=== PATIENT | female | born 1930 | race Caucasian/White ===

== ENCOUNTER → 2016-03-19 | Outpatient (CLI) | payer BC ==
[~2016-03-19] MED LIST: AMLO5TAB4 PO; ATV1 PO; BUPR100T8 PO; CALCTAB7 PO; CEPH500C PO; CNT PO; ESCI1TAB18 PO; GLC5 PO; IMD/2 PO; MCRK20 PO; METH500T3 PO; METO50TA7 PO; PRLSR20 PO
--- NOTE | 2016-03-19 15:48 | MAMMOGRAPHY REPORT ---
UNILATERAL RIGHT DIGITAL DIAGNOSTIC MAMMOGRAM TOMOSYNTHESIS AND TARGETED RIGHT ULTRASOUND: 03/19/2016 CLINICAL HISTORY: Callback from screening mammogram for right breast mass. TECHNIQUE: Breast tomosynthesis in addition to standard 2D mammography was performed. Spot domonique kavon right CC and MLO 2-D and tomosynthesis images were obtained. COMPARISON: Comparison is made to exams dated: 03/06/2016 mammogram, 02/22/2015 mammogram, 3 mammogram, 02/21/2014 mammogram, 11/13/2011 mammogram, and 10/02/2010 mammogram - [facility]. BREAST COMPOSITION: There are scattered areas of fibroglandular density in the right breast. FINDINGS: Spot compression views of the right breast demonstrate an oval circumscribed 7 mm mass se en within the right lower inner quadrant. Targeted ultrasound was performed of the area of the mammographic mass. In the right breast at 4:00 , 2 cm from the nipple, there is an oval circumscribed anechoic mass with two thin internal septatio ns, measuring 4 x 4 x 4 mm. This corresponds with the mammographic mass and is consistent with a be nign cyst. IMPRESSION: ACR BI-RADS CATEGORY 2: BENIGN, TARGETED ULTRASOUND ACR BI-RADS CATEGORY 2: BENIGN Benign 4 mm cyst in the right breast at 4:00 on ultrasound, which correlates with the mammographic m ass. There is no mammographic or targeted sonographic evidence of malignancy. A 1 year screening ma mmogram is recommended. The patient has been verbally notified of the results. Approximately 10% of breast cancers are not detected with mammography. A negative mammographic repor t should not delay biopsy if a clinically suggestive mass is present. Ramila Medrano M.D. /:03/19/2016 14:11:35 Prop And Scenery Maker: Justina AKINS([place])(M), [facility] letter sent: Normal 1/2 BI-RADS Code: ACR BI-RADS Category 2: Benign Ultrasound BI-RADS: ACR BI-RADS Category 2: Benign
== END | disposition home or self-care (01) ==
LOC: C.MAMM 13:43
PROVIDERS: ATTEND Internal Medicine
DX: N60.01 Solitary cyst of right breast (principal)

== ENCOUNTER → 2016-10-28 | Outpatient (CLI) | payer BC ==
[2016-10-28 17:19] LABS: BASO % 0.9 %; BASO ABS # 0.08 K/uL (0-0.2); COMPLETE YES; HEMATOCRIT 39.5 % (37-47); IG% 0.2 %; LYMPH % 29.8 %; LYMPH ABS # 2.52 K/uL (1.2-3.4); MEAN CORPUSCULAR HEMOGLOBIN 31.3 pg (25-34); MEAN CORPUSCULAR HGB CONC 32.9 g/dl (32-36); MEAN PLATELET VOLUME 11.7 fL (7.4-10.4); MONO % 5.9 %; NEUT % 61.2 %; PLATELET COUNT 202 K/uL (130-400); RED BLOOD COUNT 4.16 M/uL (4.2-5.4); WHITE BLOOD COUNT 8.47 K/uL (4.8-10.8)
[2016-10-28 17:20] LABS: ALT/SGPT 21 U/L (12-78); BLOOD UREA NITROGEN 22 mg/dl (7-18); CALCIUM 9.5 mg/dl (8.5-10.1); CARBON DIOXIDE 27 mmol/L (21-32); CHLORIDE 107 mmol/L (98-107); GLUCOSE 144 mg/dl (70-99); POTASSIUM 4.6 mmol/L (3.5-5.1); SODIUM 141 mmol/L (136-145)
[2016-10-28 17:30] LABS: ALB/GLOB RATIO 0.8 (0.9-2); ALKALINE PHOSPHATASE 89 U/L (45-117); AST/SGOT 27 U/L (15-37)
[2016-10-29 07:08] LABS: ESTIMATED AVERAGE GLUCOSE 157 mg/dl; HA1C FLAG Normal (Normal)
--- NOTE | 2016-11-06 15:19 | CODING QUERY MEDICAL NECESSITY ---
SUPPORTING DIAGNOSIS NEEDED A supporting diagnosis is required for the test/procedure performed on this patient in order for us to be reimbursed by the patient's insurance. Please provide a supporting diagnosis for the following test/procedure listed below next to the test name along with your signature. *If there is no additional diagnosis for this patient that would support the following test/procedure please document that below next to the test/procedure. Test(s)/Procedure(s) that require a supporting diagnosis: * HEMOGLOBIN A1C DIAGNOSIS: Provider Signature: Date: Thank you Martina Jesus [employer] Once completed, please kindly fax back to [phone] For questions please call [phone]
== END | disposition home or self-care (01) ==
LOC: C.LABBC 14:28
PROVIDERS: ATTEND Internal Medicine
DX: N18.3 Chronic kidney disease, stage 3 (moderate) (principal); E11.9 Type 2 diabetes mellitus without complications

== ENCOUNTER 2017-01-27 10:35 | Observation (INO) | payer BC, OTHER ==
[~2017-01-27] VITALS: Ht 167.6 cm; Wt 116.3 kg
[2017-01-27] MEDS ORDERED: SODIUM CHLORIDE 0.9% 500ML 500 ML IV STA (10:44)
[2017-01-27] MEDS ORDERED: ONDANSETRON INJ 2 MG/ML 2 ML VIAL IV STA (10:44)
[2017-01-27] MEDS ORDERED: MoRPHine SULFATE 4 MG/ML 1 ML CARP\\VIAL IV PRN (10:45)
[2017-01-27 11:19] LABS: BASO % 0.7 %; BASO ABS # 0.06 K/uL (0-0.2); COMPLETE YES; EOS % 1.6 %; HEMATOCRIT 37.9 % (37-47); IG% 0.2 %; LYMPH % 20.9 %; LYMPH ABS # 1.85 K/uL (1.2-3.4); MEAN CELL VOLUME 94.3 fL (80-100); MEAN CORPUSCULAR HEMOGLOBIN 31.6 pg (25-34); MEAN CORPUSCULAR HGB CONC 33.5 g/dl (32-36); NEUT % 70.6 %; PLATELET COUNT 177 K/uL (130-400); RED BLOOD COUNT 4.02 M/uL (4.2-5.4); WHITE BLOOD COUNT 8.84 K/uL (4.8-10.8)
[2017-01-27 11:21] LABS: MANUAL MICROSCOPIC REQUIRED? YES; REVIEW REQ? NO; URINE APPEARANCE SL CLOUDY (CLEAR); URINE BILIRUBIN NEG (NEG); URINE COLOR YELLOW; URINE NITRITE POS (NEG); URINE PH 5.5 (4.5-7.5); URINE SPECIFIC GRAVITY 1.025 (1.000-1.030); UROBILINOGEN NEG (NEG)
[2017-01-27 11:30] LABS: PROTHROMBIN TIME (PATIENT) 10.7 SECONDS (9.0-12.0)
[2017-01-27 11:31] LABS: URINE BACTERIA 3+ (NEG); URINE RBC 0-4 /hpf (0-4)
[2017-01-27 11:39] LABS: ALT/SGPT 18 U/L (12-78); BLOOD UREA NITROGEN 19 mg/dl (7-18); BUN/CREATININE RATIO 15.2 (10-20); CALCIUM 9.5 mg/dl (8.5-10.1); CARBON DIOXIDE 27 mmol/L (21-32); CHLORIDE 106 mmol/L (98-107); CREATININE 1.28 mg/dl (0.60-1.20); GLUCOSE 159 mg/dl (70-99); POTASSIUM 4.7 mmol/L (3.5-5.1); SODIUM 139 mmol/L (136-145)
[2017-01-27 11:44] LABS: ALKALINE PHOSPHATASE 83 U/L (45-117); AST/SGOT 19 U/L (15-37); CKMB/CK RATIO 1.1 (0-3.0)
--- NOTE | 2017-01-27 11:51 | EMERGENCY ROOM VISIT NOTE ---
History Report prepared by Emanuel: Chela Del Rosario Under the Supervision of: Dr. Jim Davison D.O. First contact with patient: 10:36 Stated Complaint: L-ANKLE PAIN History of Present Illness The patient is a 87 year old female who presents to the Emergency Room with complaints of constant left ankle pain secondary to a fall occurring DIRECTOR CARDIAC. Per EMS, the patient has fallen 3 times in the past 24 hours. She has refused transport to the ED each time. After her most recent fall, the patient had a deformity to the left ankle and was brought to the ED by ambulance for further evaluation. The patient is currently complaining of left ankle pain that is worsened with movement. She rates her pain as an 8/10 in severity. She denies any other pain or injury occurring from her falls. The patient denies neck pain , back pain, and abdominal pain. She has a history of dementia. Daughter states that the patient is at her baseline mental status currently. The HPI is limited secondary to the patient's mental status. Source of History: patient, family (daughter), nursing staff History Limited By: dementia Onset: DIRECTOR CARDIAC Position: ankle (left) Symptom Intensity: 8/10 Timing: constant Modifying Factors (Worsening): movement Associated Symptoms: No neck pain, No abdominal pain, No back pain Review of Systems ROS is limited secondary to the patient's mental status. Past Medical & Surgical Medical Problems: (1) Dementia, unspecified, with behavioral disturbance (2) DJD (degenerative joint disease) (3) Esophageal reflux (4) Essential (primary) hypertension (5) Hypothyroidism, unspecified (6) Left ankle injury (7) Polymyalgia rheumatica (8) Postoperative confusion Surgical Problems: (1) Knee joint replacement status Family History Non-pertinent due to advanced age. Social History Smoking Status: Never Smoker Alcohol Use: none Drug Use: none Marital Status: Housing Status: lives with family Occupation Status: retired Current/Historical Medications Scheduled Bupropion (Wellbutrin Sr), 100 MG PO BID Calcium Carbonate-Vitamin D W/ (Caltrate 600 Plus), 1 TABLET PO DAILY Escitalopram Oxalate (Lexapro), 20 MG PO DAILY Glipizide (Glipizide), 7.5 MG PO DAILY Loperamide Hcl (Imodium), 4 MG PO PRN Lorazepam (Ativan), 1-1.5 MG PO HS Methylcellulose (Laxative) (Citrucel), 1,000 MG PO DAILY Metoprolol Succ (Toprol Xl) (Toprol-Xl ), 100 MG PO DAILY Multiple Vitamins W/ Minerals (Centrum), 1 TAB PO DAILY Omeprazole (Prilosec), 20 MG PO DAILY Potassium Ext Rel (Klor-Con), 20 MEQ PO DAILY Allergies Coded Allergies: Sulfa Drugs (Verified Adverse Reaction, Mild, vomiting, 01/27/17) Physical Exam Vital Signs Date Time Temp Pulse Resp B/P (MAP) Pulse Ox O2 Delivery O2 Flow Rate FiO2 01/27/17 18:00 71 16 149/62 93 Room Air 01/27/17 16:30 68 16 143/75 98 Nasal Cannula 2.0 01/27/17 15:36 70 01/27/17 14:30 78 16 143/109 98 Room Air 01/27/17 12:55 72 16 177/103 99 Nasal Cannula 2.0 01/27/17 11:36 98 Nasal Cannula 2.0 01/27/17 11:32 75 16 152/67 88 Room Air 01/27/17 11:17 74 01/27/17 11:13 71 18 155/62 94 Room Air 01/27/17 10:44 36.6 70 18 124/66 94 Room Air Physical Exam GENERAL: Patient is awake, alert, mildly anxious appearing but comfortable. EYES: The conjunctivae are clear. The pupils are round and reactive. EARS, NOSE, MOUTH AND THROAT: The nose is without any evidence of any deformity. Mucous membranes are dry, tongue is midline NECK: The neck is nontender and supple. RESPIRATORY: Normal respiratory effort is noted there is no evidence of wheezing rhonchi or rales CARDIOVASCULAR: Regular rate and rhythm noted there no murmurs rubs or gallops normal S1 normal S2 GASTROINTESTINAL: The abdomen is soft. Bowel sounds are present in all quadrants. Abdomen is nontender BACK: No midline tenderness or or step-off noted range of motion in flexion extension as well as rotation no signs of muscle spasm noted MUSCULOSKELETAL/EXTREMITIES: There was a significant deformity to the left ankle. There is no breakdown of the skin but significant ecchymosis was noted. There is no left knee pain. There was proximal fibular pain, no tenderness or swelling over foot. pulses symmetric. SKIN: There is no obvious evidence of any rash. There are no petechiae, pallor or cyanosis noted. NEUROLOGIC: Patient is awake alert and oriented to person and place but not time. Medical Decision & Procedures ER Provider Diagnostic Interpretation: Radiology results as stated below per my review and radiologist interpretation: L KNEE 1 OR 2 VIEWS ROUTINE CLINICAL HISTORY: Left knee pain status post trauma COMPARISON: None. DISCUSSION: There are postsurgical changes of a total left knee arthroplasty and patellar resurfacing. No acute fractures or dislocations are visualized. IMPRESSION: Postsurgical change. No acute fractures or dislocations identified. Electronically signed by: Yeison Wright M.D. 01/27/2017 12:10 PM Dictated Date/Time: 01/27/2017 12:09 PM AP PELVIS AND RIGHT HIP 4 VIEWS CLINICAL HISTORY: Right hip pain status post trauma COMPARISON STUDY: No previous studies for comparison. FINDINGS: No acute fractures or subluxations of the right hip are visualized. There is an equivocal old healed fracture the left superior pubic ramus. There are postsurgical changes at the L5-S1 level. There is no symphysis diastases. There is no SI joint diastases. IMPRESSION: No acute fractures or dislocations identified. Electronically signed by: Yeison Wright M.D. 01/27/2017 12:13 PM Dictated Date/Time: 01/27/2017 12:[address] SCAN OF THE BRAIN WITHOUT IV CONTRAST CLINICAL HISTORY: Fall. COMPARISON STUDY: CT of the brain dated 06/24/2011. TECHNIQUE: Unenhanced axial CT scan of the brain is performed from the vertex to the skull base. FINDINGS: Brain parenchyma: There are age-related involutional changes noting moderate to advanced subcortical and periventricular microangiopathic change. There is no hemorrhage, mass effect, or evidence of acute territorial ischemia by CT criteria. 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 Price-white matter is preserved. No extra-axial fluid collection is seen. Ventricles, sulci, cisterns: Prominent secondary to involutional change. Intracranial vasculature: There is atherosclerotic calcification of the cavernous carotid and vertebral arteries. Calvarium: The skeletal structures are osteopenic. No depressed calvarial fracture is seen. Sinuses and mastoids: Fluid is seen in the sphenoid sinuses. The remaining visualized paranasal sinuses are clear. The mastoid air cells are well pneumatized. Orbits: The bony orbits are grossly intact. There are bilateral ocular lens implants. IMPRESSION: Senescent changes as above with no hemorrhage, mass effect, or evidence of acute territorial ischemia by CT criteria. Electronically signed by: Gordon Troy M.D. 01/27/2017 11:48 AM Dictated Date/Time: 01/27/2017 11:44 AM CHEST ONE VIEW PORTABLE CLINICAL HISTORY: fall COMPARISON STUDY: 12/05/2013 FINDINGS: The heart is normal in size. No pneumothorax is visualized on the supine film. There are postsurgical changes of bilateral shoulder arthroplasties. There is no focal pulmonary consolidation. There is a suggestion of interstitial thickening, finding which may be accentuated given the supine technique.[ IMPRESSION: 1. Mild residual thickening 2. No evidence of focal pulmonary consolidation 3. No pneumothorax is visualized on this supine study. Electronically signed by: Yeison Wright M.D. 01/27/2017 12:11 PM Dictated Date/Time: 01/27/2017 12:[address] DOSE: 949.88 mGy.cm HISTORY: fall TECHNIQUE: Multiaxial CT images of the cervical spine were performed and reformatted in the sagittal and coronal plane without the use of contrast. A dose lowering technique was utilized adhering to the principles of ALARA. COMPARISON: None. FINDINGS: No fractures. There is 2 mm of anterolisthesis of C3 on C4. This is likely due to long-standing degenerative change. Mild reversal of the normal lordotic curvature. Severe disc space narrowing at C5-C6 and C6-C7 with endplate osteophytes. Moderate to severe disc space narrowing at C4-C5. Prevertebral soft tissues and the C1-C2 interval are intact. No pneumothorax. IMPRESSION: No fractures within the cervical spine. Degenerative changes as described above. Electronically signed by: Yung Harry M.D. 01/27/2017 12:01 PM Dictated Date/Time: 01/27/2017 11:55 AM LEFT ANKLE 3 VIEWS HISTORY: Left ankle pain. fall COMPARISON: None. FINDINGS: Overlying cast material obscures fine bony detail. Comminuted fracture involving the distal shaft of the left fibula. This is nonsignificant the displaced. The distal tibia appears intact. Plantar heel spur. Dislocation. Well-corticated ossific densities adjacent to the medial malleolus are consistent with old avulsion injuries. No radiopaque foreign bodies. IMPRESSION: Comminuted and essentially nondisplaced fracture involving the distal shaft of the left fibula. Electronically signed by: Yung Harry M.D. 01/27/2017 12:14 PM Dictated Date/Time: 01/27/2017 12:13 PM Laboratory Results 01/27/17 11:05 Red Blood Count 4.02, Mean Corpuscular Volume 94.3, Mean Corpuscular Hemoglobin 31.6, Mean Corpuscular Hemoglobin Concent 33.5, Mean Platelet Volume 10.0, Neutrophils (%) (Auto) 70.6, Lymphocytes (%) (Auto) 20.9, Monocytes (%) (Auto) 6.0, Eosinophils (%) (Auto) 1.6, Basophils (%) (Auto) 0.7, Neutrophils # (Auto) 6.24, Lymphocytes # (Auto) 1.85, Monocytes # (Auto) 0.53, Eosinophils # (Auto) 0.14, Basophils # (Auto) 0.06 01/27/17 11:05 Test 01/27/17 11:05 01/27/17 11:10 White Blood Count 8.84 K/uL (4.8-10.8) Red Blood Count 4.02 M/uL (4.2-5.4) Hemoglobin 12.7 g/dL (12.0-16.0) Hematocrit 37.9 % (37-47) Mean Corpuscular Volume 94.3 fL (80-100) Mean Corpuscular Hemoglobin 31.6 pg (25-34) Mean Corpuscular Hemoglobin Concent 33.5 g/dl (32-36) Platelet Count 177 K/uL (130-400) Mean Platelet Volume 10.0 fL (7.4-10.4) Neutrophils (%) (Auto) 70.6 % Lymphocytes (%) (Auto) 20.9 % Monocytes (%) (Auto) 6.0 % Eosinophils (%) (Auto) 1.6 % Basophils (%) (Auto) 0.7 % Neutrophils # (Auto) 6.24 K/uL (1.4-6.5) Lymphocytes # (Auto) 1.85 K/uL (1.2-3.4) Monocytes # (Auto) 0.53 K/uL (0.11-0.59) Eosinophils # (Auto) 0.14 K/uL (0-0.5) Basophils # (Auto) 0.06 K/uL (0-0.2) RDW Standard Deviation 49.8 fL (36.4-46.3) RDW Coefficient of Variation 14.6 % (11.5-14.5) Immature Granulocyte % (Auto) 0.2 % Immature Granulocyte # (Auto) 0.02 K/uL (0.00-0.02) Prothrombin Time 10.7 SECONDS (9.0-12.0) Prothromb Time International Ratio 1.0 (0.9-1.1) Activated Partial Thromboplast Time 24.9 SECONDS (21.0-31.0) Partial Thromboplastin Ratio 1.0 Anion Gap 6.0 mmol/L (3-11) Est Creatinine Clear Calc Drug Dose 40.9 ml/min Estimated GFR () 43.8 Estimated GFR (Non- 37.8 BUN/Creatinine Ratio 15.2 (10-20) Calcium Level 9.5 mg/dl (8.5-10.1) Total Bilirubin 0.5 mg/dl (0.2-1) Direct Bilirubin 0.2 mg/dl (0-0.2) Aspartate Amino Transf (AST/SGOT) 19 U/L (15-37) Alanine Aminotransferase (ALT/SGPT) 18 U/L (12-78) Alkaline Phosphatase 83 U/L (45-117) Total Creatine Kinase 70 U/L (26-192) Creatine Kinase MB 0.8 ng/ml (0.5-3.6) Creatine Kinase MB Ratio 1.1 (0-3.0) Troponin I < 0.015 ng/ml (0-0.045) Total Protein 7.4 gm/dl (6.4-8.2) Albumin 3.2 gm/dl (3.4-5.0) Lipase 103 U/L (73-393) Urine Color YELLOW Urine Appearance SL CLOUDY (CLEAR) Urine pH 5.5 (4.5-7.5) Urine Specific [place] 1.025 (1.000-1.030) Urine Protein NEG (NEG) Urine Glucose (UA) NEG (NEG) Urine Ketones NEG (NEG) Urine Occult Blood NEG (NEG) Urine Nitrite POS (NEG) Urine Bilirubin NEG (NEG) Urine Urobilinogen NEG (NEG) Urine Leukocyte Esterase SMALL (NEG) Urine RBC 0-4 /hpf (0-4) Urine WBC 10-30 /hpf (0-5) Urine Epithelial Cells 10-20 /lpf (0-5) Urine Bacteria 3+ (NEG) Urine Hyaline Casts 1-5 /lpf (0-5) Laboratory results per my review. Medications Administered Medications (Trade) Dose Ordered Sig/Armida Route Start Time Stop Time Status Last Admin Dose Admin Morphine Sulfate (MoRPHine SULFATE INJ) 4 mg Q15M PRN IV 01/27/17 10:45 02/10/17 10:44 01/27/17 11:12 4 MG Ondansetron HCl (Zofran Inj) 4 mg NOW STAT IV 01/27/17 10:44 01/27/17 10:47 DC 01/27/17 11:12 4 MG Sodium Chloride 500 ml @ 999 mls/hr Q31M STAT IV 01/27/17 10:44 01/27/17 11:14 DC 01/27/17 11:11 999 MLS/HR Ceftriaxone Sodium (Rocephin Inj) 1 gm NOW STAT IV 01/27/17 12:45 01/27/17 12:46 DC 01/27/17 12:54 1 GM ECG Indication: altered mental status Rate (beats per minute): 75 Rhythm: normal sinus Findings: 1st degree AV block, no ectopy Comparison ECG Date: 11/24/13 Change: no significant change ED Course 1036: The patient was evaluated in room A3. A complete history and physical examination were performed. 1044: NSS 500 ml @ 999 mls/hr IV, Zofran 4 mg IV 1045: Morphine sulfate 4 mg IV - PRN 1237: I discussed the case with Chapincito Garcia PA-C with [facility]. He will review the patient's x-rays. 1245: Rocephin 1 gm IV 1258: I spoke with Chapincito Garcia again at this time. He felt that the patient should be non-weight bearing. She can follow-up as an outpatient with Dr. Rodriguez on Thursday for further management. 1718: I spoke with Dr. Garcia. We discussed the patients case. The patient will be evaluated by the [facility] for further management. 1723: I reassessed the patient at this time. She is feeling better and resting comfortably. I discussed the results and treatment plan with the patient. I answered all pertaining questions that she had. She expressed understanding and verbalized agreement. Medical Decision Differential diagnosis: Etiologies such as fracture, dislocation, neurovascular compromise, compartment syndrome, soft tissue injury, as well as others were entertained. Nursing notes reviewed. Additional history is obtained from the patient's family members. The patient is an 87-year-old female who presented to the emergency department for an evaluation of left lower extremity pain. The patient had a fall earlier in the day. She was helped up by the prehospital personnel initially and then refuse transfer. The patient had another fall and was then brought to the emergency department because of significant pain or leg. Her physical exam appeared to be consistent with an anterior dislocation fracture of the left ankle. This was treated with splinting. The patient's x-rays revealed good reduction of the joint however there is a significant fracture. I discussed the patient's laboratory and radiographic studies with her as well as her family members. I discussed her case with the on-call orthopedic group of her choice. They feel that this may need to be treated surgically but the patient could follow-up as an outpatient. Because of her underlying dementia I did not feel she would be a good candidate for returning home at this time. For this reason I discussed her case with the emergency Department top case assembler's. Referrals were made for rehabilitation but we were unable to place the patient at this time. This reason I discussed her case with the on-call [facility] hospitalist group. They've agreed to evaluate the patient in emergency department for further management and disposition. Medication Reconcilliation Current Medication List: was personally reviewed by me Consults Time Called: 1234 Consulting Physician: Chapincito Garcia PA-C Returned Call: [phone] I discussed the case with Chapincito Garcia PA-C with [facility]. He will review the patient's x-rays. Additional Consults: Time Called: [phone] Consulted Physician: Chapincito Garcia Returned Call: [phone] Additional Comments: I spoke with Chapincito Garcia again at this time. He felt that the patient should be non-weight bearing. She can follow-up as an outpatient with Dr. Rodriguez on Thursday for further management. Time Called: [phone] Consulted Physician: Dr. Garcia Returned Call: [phone] Additional Comments: I spoke with Dr. Garcia. We discussed the patients case. The patient will be evaluated by the [facility] for further management. Impression Primary Impression: Fracture dislocation of left ankle Additional Impressions: Bimalleolar ankle fracture UTI (urinary tract infection) Scribe Attestation The scribe's documentation has been prepared under my direction and personally reviewed by me in its entirety. I confirm that the note above accurately reflects all work, treatment, procedures, and medical decision making performed by me. Departure Information Dispostion Being Evaluated By Hospitalist Myron Patel M.D. (PCP) Problem Qualifiers Primary Impression: Fracture dislocation of left ankle Encounter type: initial encounter Fracture type: closed Qualified Codes: S82.892A - Other fracture of left lower leg, initial encounter for closed fracture Additional Impressions: Bimalleolar ankle fracture Encounter type: initial encounter Fracture type: closed Laterality: left Qualified Codes: S82.842A - Displaced bimalleolar fracture of left lower leg, initial encounter for closed fracture UTI (urinary tract infection) Urinary tract infection type: acute cystitis Hematuria presence: without hematuria Qualified Codes: N30.00 - Acute cystitis without hematuria
--- NOTE | 2017-01-27 12:03 | DIAGNOSTIC IMAGING REPORT ---
CERVICAL SPINE CT CT DOSE: 949.88 mGy.cm HISTORY: fall TECHNIQUE: Multiaxial CT images of the cervical spine were performed and reformatted in the sagittal and coronal plane without the use of contrast. A dose lowering technique was utilized adhering to the principles of ALARA. COMPARISON: None. FINDINGS: No fractures. There is 2 mm of anterolisthesis of C3 on C4. This is likely due to long-standing degenerative change. Mild reversal of the normal lordotic curvature. Severe disc space narrowing at C5-C6 and C6-C7 with endplate osteophytes. Moderate to severe disc space narrowing at C4-C5. Prevertebral soft tissues and the C1-C2 interval are intact. No pneumothorax. IMPRESSION: No fractures within the cervical spine. Degenerative changes as described above. Electronically signed by: Yung Harry M.D. 01/27/2017 12:01 PM Dictated Date/Time: 01/27/2017 11:55 AM
--- NOTE | 2017-01-27 12:11 | DIAGNOSTIC IMAGING REPORT ---
L KNEE 1 OR 2 VIEWS ROUTINE CLINICAL HISTORY: Left knee pain status post trauma COMPARISON: None. DISCUSSION: There are postsurgical changes of a total left knee arthroplasty and patellar resurfacing. No acute fractures or dislocations are visualized. IMPRESSION: Postsurgical change. No acute fractures or dislocations identified. Electronically signed by: Yeison Wright M.D. 01/27/2017 12:10 PM Dictated Date/Time: 01/27/2017 12:09 PM
--- NOTE | 2017-01-27 12:13 | DIAGNOSTIC IMAGING REPORT ---
CHEST ONE VIEW PORTABLE CLINICAL HISTORY: fall COMPARISON STUDY: 12/05/2013 FINDINGS: The heart is normal in size. No pneumothorax is visualized on the supine film. There are postsurgical changes of bilateral shoulder arthroplasties. There is no focal pulmonary consolidation. There is a suggestion of interstitial thickening, finding which may be accentuated given the supine technique.[ IMPRESSION: 1. Mild residual thickening 2. No evidence of focal pulmonary consolidation 3. No pneumothorax is visualized on this supine study. Electronically signed by: Yeison Wright M.D. 01/27/2017 12:11 PM Dictated Date/Time: 01/27/2017 12:10 PM
--- NOTE | 2017-01-27 12:14 | DIAGNOSTIC IMAGING REPORT ---
AP PELVIS AND RIGHT HIP 4 VIEWS CLINICAL HISTORY: Right hip pain status post trauma COMPARISON STUDY: No previous studies for comparison. FINDINGS: No acute fractures or subluxations of the right hip are visualized. There is an equivocal old healed fracture the left superior pubic ramus. There are postsurgical changes at the L5-S1 level. There is no symphysis diastases. There is no SI joint diastases. IMPRESSION: No acute fractures or dislocations identified. Electronically signed by: Yeison Wright M.D. 01/27/2017 12:13 PM Dictated Date/Time: 01/27/2017 12:12 PM
--- NOTE | 2017-01-27 12:16 | DIAGNOSTIC IMAGING REPORT ---
LEFT ANKLE 3 VIEWS HISTORY: Left ankle pain. fall COMPARISON: None. FINDINGS: Overlying cast material obscures fine bony detail. Comminuted fracture involving the distal shaft of the left fibula. This is nonsignificant the displaced. The distal tibia appears intact. Plantar heel spur. Dislocation. Well-corticated ossific densities adjacent to the medial malleolus are consistent with old avulsion injuries. No radiopaque foreign bodies. IMPRESSION: Comminuted and essentially nondisplaced fracture involving the distal shaft of the left fibula. Electronically signed by: Yung Harry M.D. 01/27/2017 12:14 PM Dictated Date/Time: 01/27/2017 12:13 PM
[2017-01-27] MEDS ORDERED: POTA20TA16 PO (12:27)
[2017-01-27] MEDS ORDERED: METO100T44 PO (12:27)
[2017-01-27] MEDS ORDERED: PRLSR20 PO (12:27)
[2017-01-27] MEDS ORDERED: ATV/1 PO (12:27)
[2017-01-27] MEDS ORDERED: MULTTAB5 PO (12:27)
[2017-01-27] MEDS ORDERED: CEFTRIAXONE SOD INJ 1 GM ADDVIAL IV STA (12:45)
[2017-01-27 13:20] VITALS: BP 136/65
[2017-01-27] MEDS ORDERED: IV FLUIDS COMPLETED PRN (18:00)
[2017-01-27] MEDS ORDERED: POLYETHYLENE (MIRALAX) 17 GM PACK PO PRN (18:00)
[2017-01-27] MEDS ORDERED: ONDANSETRON INJ 2 MG/ML 2 ML VIAL IV PRN (18:00)
[2017-01-27] MEDS ORDERED: LOPERAMIDE HCL 2 MG CAP PO PRN (18:00)
[2017-01-27] MEDS ORDERED: MAGNESIUM HYDROXIDE SUSP 30 ML UDC PO PRN (18:00)
[2017-01-27] MEDS ORDERED: ALUMINUM/MAGNESIUM/SIMETH (MAALOX MAX) 30 ML UDC PO PRN (18:00)
--- NOTE | 2017-01-27 18:08 | History and Physical ---
History & Physical Date & Time of Service: Jan 27, 2017 at 17:52 Chief Complaint: L-Ankle Pain Primary Care Physician: Myron Palencia M.D. History of Present Illness Source: patient, family (daughter and son-in-law), clinic records, hospital records Patient is a pleasant 87 y/o female, with PMHx of T2DM, HTN, CKD stage III, depression, dementia, and GERD, who presented to the ED because of 3 falls over the last 24 hours. History came largely from daughter at bedside due to patient' s dementia and acute altered mental status. According to the daughter, she visits her mother once a week and takes her for dinner- patient lives w/ other daughter. Yesterday, she experienced two falls but denied any injuries. Today she was notified by life[facility] that patient experienced another fall. Patient does not recall falling. She admits to L ankle pain. Family at bedside is unsure of what caused fall as they were not present for episodes. Daughter does note patient seems more confused today and yesterday then at baseline. In ED, patient was found to have L ankle fracture- Chapincito Garcia PA-C recommended non -weightbearing and f/u with Dr. Rodriguez on Thursday. She is likely non-operative. Patient was also found to have UTI. ED tried to get patient into [facility] today but was unsuccessful. ROS could not be obtained secondary to mental status. Past Medical/Surgical History Medical Problems: T2DM HTN CKD stage III depression dementia GERD Surgical Problems: knee replacement hysterectomy Family History cancer DM Social History Smoking Status: Never Smoker Drug Use: none Marital Status: Housing status: lives with family Occupational Status: retired Immunizations History of Influenza Vaccine: N/A Influenza Vaccine Date: Jan 19, 2005 History of Tetanus Vaccine?: Yes History of Pneumococcal: No History of Hepatitis B Vaccine: No Multi-Drug Resistant Organisms History of MDRO: No Allergies Coded Allergies: Sulfa Drugs (Verified Adverse Reaction, Mild, vomiting, 01/27/17) Home Medications Scheduled Bupropion (Wellbutrin Sr), 100 MG PO BID Calcium Carbonate-Vitamin D W/ (Caltrate 600 Plus), 1 TABLET PO DAILY Escitalopram Oxalate (Lexapro), 20 MG PO DAILY Glipizide (Glipizide), 7.5 MG PO DAILY Loperamide Hcl (Imodium), 4 MG PO PRN Lorazepam (Ativan), 1-1.5 MG PO HS Methylcellulose (Laxative) (Citrucel), 1,000 MG PO DAILY Metoprolol Succ (Toprol Xl) (Toprol-Xl ), 100 MG PO DAILY Multiple Vitamins W/ Minerals (Centrum), 1 TAB PO DAILY Omeprazole (Prilosec), 20 MG PO DAILY Potassium Ext Rel (Klor-Con), 20 MEQ PO DAILY Physical Exam Vital Signs Date Time Temp Pulse Resp B/P (MAP) Pulse Ox O2 Delivery O2 Flow Rate FiO2 01/27/17 16:30 68 16 143/75 98 Nasal Cannula 2.0 01/27/17 15:36 70 01/27/17 14:30 78 16 143/109 98 Room Air 01/27/17 12:55 72 16 177/103 99 Nasal Cannula 2.0 01/27/17 11:36 98 Nasal Cannula 2.0 01/27/17 11:32 75 16 152/67 88 Room Air 01/27/17 11:17 74 01/27/17 11:13 71 18 155/62 94 Room Air 01/27/17 10:44 36.6 70 18 124/66 94 Room Air Diagnostics Laboratory Results Results Past 24 Hours Test 01/27/17 11:05 01/27/17 11:10 Range/Units White Blood Count 8.84 4.8-10.8 K/uL Red Blood Count 4.02 4.2-5.4 M/uL Hemoglobin 12.7 12.0-16.0 g/dL Hematocrit 37.9 37-47 % Mean Corpuscular Volume 94.3 80-100 fL Mean Corpuscular Hemoglobin 31.6 25-34 pg Mean Corpuscular Hemoglobin Concent 33.5 32-36 g/dl Platelet Count 177 130-400 K/uL Mean Platelet Volume 10.0 7.4-10.4 fL Neutrophils (%) (Auto) 70.6 % Lymphocytes (%) (Auto) 20.9 % Monocytes (%) (Auto) 6.0 % Eosinophils (%) (Auto) 1.6 % Basophils (%) (Auto) 0.7 % Neutrophils # (Auto) 6.24 1.4-6.5 K/uL Lymphocytes # (Auto) 1.85 1.2-3.4 K/uL Monocytes # (Auto) 0.53 0.11-0.59 K/uL Eosinophils # (Auto) 0.14 0-0.5 K/uL Basophils # (Auto) 0.06 0-0.2 K/uL RDW Standard Deviation 49.8 36.4-46.3 fL RDW Coefficient of Variation 14.6 11.5-14.5 % Immature Granulocyte % (Auto) 0.2 % Immature Granulocyte # (Auto) 0.02 0.00-0.02 K/uL Prothrombin Time 10.7 9.0-12.0 SECONDS Prothromb Time International Ratio 1.0 0.9-1.1 Activated Partial Thromboplast Time 24.9 21.0-31.0 SECONDS Partial Thromboplastin Ratio 1.0 Sodium Level 139 136-145 mmol/L Potassium Level 4.7 3.5-5.1 mmol/L Chloride Level 106 98-107 mmol/L Carbon Dioxide Level 27 21-32 mmol/L Anion Gap 6.0 3-11 mmol/L Blood Urea Nitrogen 19 7-18 mg/dl Creatinine 1.28 0.60-1.20 mg/dl Est Creatinine Clear Calc Drug Dose 40.9 ml/min Estimated GFR () 43.8 Estimated GFR (Non- 37.8 BUN/Creatinine Ratio 15.2 10-20 Random Glucose 159 70-99 mg/dl Calcium Level 9.5 8.5-10.1 mg/dl Total Bilirubin 0.5 0.2-1 mg/dl Direct Bilirubin 0.2 0-0.2 mg/dl Aspartate Amino Transf (AST/SGOT) 19 15-37 U/L Alanine Aminotransferase (ALT/SGPT) 18 12-78 U/L Alkaline Phosphatase 83 45-117 U/L Total Creatine Kinase 70 26-192 U/L Creatine Kinase MB 0.8 0.5-3.6 ng/ml Creatine Kinase MB Ratio 1.1 0-3.0 Troponin I < 0.015 0-0.045 ng/ml Total Protein 7.4 6.4-8.2 gm/dl Albumin 3.2 3.4-5.0 gm/dl Lipase 103 73-393 U/L Urine Color YELLOW Urine Appearance SL CLOUDY CLEAR Urine pH 5.5 4.5-7.5 Urine Specific [place] 1.025 1.000-1.030 Urine Protein NEG NEG Urine Glucose (UA) NEG NEG Urine Ketones NEG NEG Urine Occult Blood NEG NEG Urine Nitrite POS NEG Urine Bilirubin NEG NEG Urine Urobilinogen NEG NEG Urine Leukocyte Esterase SMALL NEG Urine RBC 0-4 0-4 /hpf Urine WBC 10-30 0-5 /hpf Urine Epithelial Cells 10-20 0-5 /lpf Urine Bacteria 3+ NEG Urine Hyaline Casts 1-5 0-5 /lpf Microbiology Results 01/27/17 Urine Culture, Received Pending Diagnostic Radiology L KNEE 1 OR 2 VIEWS ROUTINE CLINICAL HISTORY: Left knee pain status post trauma COMPARISON: None. DISCUSSION: There are postsurgical changes of a total left knee arthroplasty and patellar resurfacing. No acute fractures or dislocations are visualized. IMPRESSION: Postsurgical change. No acute fractures or dislocations identified. Electronically signed by: Yeison Wright M.D. 01/27/2017 12:10 PM Dictated Date/Time: 01/27/2017 12:09 PM The status of this report is Signed. Draft = Not yet reviewed or approved by Radiologist. Signed = Reviewed and approved by Radiologist. AP PELVIS AND RIGHT HIP 4 VIEWS CLINICAL HISTORY: Right hip pain status post trauma COMPARISON STUDY: No previous studies for comparison. FINDINGS: No acute fractures or subluxations of the right hip are visualized. There is an equivocal old healed fracture the left superior pubic ramus. There are postsurgical changes at the L5-S1 level. There is no symphysis diastases. There is no SI joint diastases. IMPRESSION: No acute fractures or dislocations identified. Electronically signed by: Yeison Wright M.D. 01/27/2017 12:13 PM Dictated Date/Time: 01/27/2017 12:12 PM The status of this report is Signed. Draft = Not yet reviewed or approved by Radiologist. Signed = Reviewed and approved by Radiologist. CT SCAN OF THE BRAIN WITHOUT IV CONTRAST CLINICAL HISTORY: Fall. COMPARISON STUDY: CT of the brain dated 06/24/2011. TECHNIQUE: Unenhanced axial CT scan of the brain is performed from the vertex to the skull base. FINDINGS: Brain parenchyma: There are age-related involutional changes noting moderate to advanced subcortical and periventricular microangiopathic change. There is no hemorrhage, mass effect, or evidence of acute territorial ischemia by CT criteria. 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 Price-white matter is preserved. No extra-axial fluid collection is seen. Ventricles, sulci, cisterns: Prominent secondary to involutional change. Intracranial vasculature: There is atherosclerotic calcification of the cavernous carotid and vertebral arteries. Calvarium: The skeletal structures are osteopenic. No depressed calvarial fracture is seen. Sinuses and mastoids: Fluid is seen in the sphenoid sinuses. The remaining visualized paranasal sinuses are clear. The mastoid air cells are well pneumatized. Orbits: The bony orbits are grossly intact. There are bilateral ocular lens implants. IMPRESSION: Senescent changes as above with no hemorrhage, mass effect, or evidence of acute territorial ischemia by CT criteria. Electronically signed by: Gordon Troy M.D. 01/27/2017 11:48 AM Dictated Date/Time: 01/27/2017 11:44 AM The status of this report is Signed. Draft = Not yet reviewed or approved by Radiologist. Signed = Reviewed and approved by Radiologist. CHEST ONE VIEW PORTABLE CLINICAL HISTORY: fall COMPARISON STUDY: 12/05/2013 FINDINGS: The heart is normal in size. No pneumothorax is visualized on the supine film. There are postsurgical changes of bilateral shoulder arthroplasties. There is no focal pulmonary consolidation. There is a suggestion of interstitial thickening, finding which may be accentuated given the supine technique.[ IMPRESSION: 1. Mild residual thickening 2. No evidence of focal pulmonary consolidation 3. No pneumothorax is visualized on this supine study. Electronically signed by: Yeison Wright M.D. 01/27/2017 12:11 PM Dictated Date/Time: 01/27/2017 12:10 PM The status of this report is Signed. Draft = Not yet reviewed or approved by Radiologist. Signed = Reviewed and approved by Radiologist. CERVICAL SPINE CT CT DOSE: 949.88 mGy.cm HISTORY: fall TECHNIQUE: Multiaxial CT images of the cervical spine were performed and reformatted in the sagittal and coronal plane without the use of contrast. A dose lowering technique was utilized adhering to the principles of ALARA. COMPARISON: None. FINDINGS: No fractures. There is 2 mm of anterolisthesis of C3 on C4. This is likely due to long-standing degenerative change. Mild reversal of the normal lordotic curvature. Severe disc space narrowing at C5-C6 and C6-C7 with endplate osteophytes. Moderate to severe disc space narrowing at C4-C5. Prevertebral soft tissues and the C1-C2 interval are intact. No pneumothorax. IMPRESSION: No fractures within the cervical spine. Degenerative changes as described above. Electronically signed by: Yung Harry M.D. 01/27/2017 12:01 PM Dictated Date/Time: 01/27/2017 11:55 AM The status of this report is Signed. Draft = Not yet reviewed or approved by Radiologist. Signed = Reviewed and approved by Radiologist. LEFT ANKLE 3 VIEWS HISTORY: Left ankle pain. fall COMPARISON: None. FINDINGS: Overlying cast material obscures fine bony detail. Comminuted fracture involving the distal shaft of the left fibula. This is nonsignificant the displaced. The distal tibia appears intact. Plantar heel spur. Dislocation. Well-corticated ossific densities adjacent to the medial malleolus are consistent with old avulsion injuries. No radiopaque foreign bodies. IMPRESSION: Comminuted and essentially nondisplaced fracture involving the distal shaft of the left fibula. Electronically signed by: Yung Harry M.D. 01/27/2017 12:14 PM Dictated Date/Time: 01/27/2017 12:13 PM The status of this report is Signed. Draft = Not yet reviewed or approved by Radiologist. Signed = Reviewed and approved by Radiologist. EKG PEDRO LUIS CARDONA ID:[id number] 27-JAN-2017 10:58:04 [facility] Sinus rhythm with 1st degree A-V block Possible Inferior infarct , age undetermined Abnormal ECG When compared with ECG of 24-NOV-2013 12:37, Borderline criteria for Inferior infarct are now Present Confirmed by ALE ARELLANO MD ([id number]) on 01/27/2017 4:18:53 PM 25mm/s 10mm/mV 150Hz 8.0 SP2 12SL 241 MOODY: 3 Referred by: Referred Self Confirmed By: MD ADAN AGUILERA Vent. rate 75 BPM TN interval 216 ms QRS duration 70 ms QT/QTc 440/491 ms P-R-T axes 75 15 39 1930 (87 yr) Female Room:A3 Loc:15 Business Liaison Officer:LIZANDRO Kirby ind: Impression Assessment and Plan Patient is a pleasant 87 y/o female, with PMHx of T2DM, CKD stage III, HTN, depression, dementia, and GERD, who presented to the ED because of 3 falls over the last 24 hours. L ankle fracture: - Admit to med/surg observation - CM and PT/OT consulted- planning for [facility] hopefully tomorrow - Tylenol PRN for pain management - Non-weightbearing - f/u w/ Dr. Rodriguez on 02/02 Falls and AMS likely secondary to UTI POA: - IV Rocephin pending UCx - Head CT unremarkable for acute findings CKD stage III, baseline Cr. 1.3- STABLE T2DM: - Continue Glipizide 7.5 mg daily - BSG ACHS and ISS HTN: Continue Metoprolol 100 mg daily Depression, dementia: Continue Lexapro 20 mg daily, Ativan 1 mg HS, Wellbutrin 100 mg BID GERD: Protonix- resume Prilosec at discharge DVT prophylaxis: Heparin SQ BID Code Status: LEVEL V, DNR Dispo: Planning for [facility], hopefully tomorrow- CM and PT/OT consulted Level of Care Med/Surg Resuscitation Status DO NOT RESUSCITATE VTE Prophylaxis VTE Risk Assessment Done? Y/N: Yes Risk Level: Moderate Given or contraindicated: Unfractionated heparin SQ Reviewed: Pt Seen/Exam by Me History Pt is without new concerns. Has some L foot pain, but manageable. Denies other concerns at present other than falls. Daughter states that pt has been more confused lately, but otherwise they have no other concerns. Denies chest pain or SOB. States she has been eating without issue. Agree with HPI/ROS as noted. General Appearance: WD/WN, no apparent distress Respiratory: normal breath sounds, no respiratory distress Cardiovascular: normal peripheral pulses, regular rate, rhythm Gastrointestinal: non tender, soft Extremities: non-tender, no pedal edema Neurologic/Psychiatric: alert, oriented x 3 Skin Characteristics: normal color, warm/dry Assessment/Plan Agree with plan as outlined above Mechanical falls x2, now with L ankle fracture Attempts to place pt from the ED, JV able to take tomorrow per ED UA noted + for UTI, cx pending Ceftriaxone Possibly early sepsis given daughter's concern for slightly increased mentation Blood cx done s/p abx in the ED
[2017-01-27 18:25] VITALS: O2SAT 93; Ht 167.6 cm; Wt 116.3 kg
[2017-01-27] MEDS ORDERED: DEXTROSE 50% 50 ML SYR IV PRN (18:45)
[2017-01-27] MEDS ORDERED: GLUCOSE 40% GEL 15 GM TUBE PO PRN (18:45)
[2017-01-27] MEDS ORDERED: GLUCOSE 10 TABS/TUBE PO PRN (18:45)
[2017-01-27] MEDS ORDERED: GLUCAGON FOR INJ 1 MG VIAL SQ PRN (18:45)
[2017-01-27] MEDS: BuPROPion SR 100 MG TABCR PO SCH (20:46)
[2017-01-27] MEDS: INSULIN ASPART 100 UNITS/ML 3 ML PEN SC SCH (20:46)
[2017-01-27] MEDS: ACETAMINOPHEN 325 MG TAB PO PRN (20:47)
[2017-01-27] MEDS: HEPARIN SOD 5000 UNIT/0.5 ML CARP SQ SCH (20:49)
[2017-01-27] MEDS ORDERED: LORAZEPAM 1 MG TAB PO SCH (21:00)
[2017-01-27] MEDS ORDERED: NURSING DECISION MEDICATION ORDER SCH (22:00)
[2017-01-27] MEDS ORDERED: MICONAZOLE NITRATE POWDER 43 GM EXT PRN (22:15)
[2017-01-28 00:01] VITALS: BP 136/60; PULSE 81; TEMP 37.1; O2SAT 91
[2017-01-28] MEDS: ACETAMINOPHEN 325 MG TAB PO PRN ×2 (06:42→12:57)
[2017-01-28 07:12] LABS: HEMATOCRIT 37.3 % (37-47); MEAN CELL VOLUME 95.6 fL (80-100); MEAN CORPUSCULAR HEMOGLOBIN 30.8 pg (25-34); MEAN CORPUSCULAR HGB CONC 32.2 g/dl (32-36); MEAN PLATELET VOLUME 10.4 fL (7.4-10.4); PLATELET COUNT 180 K/uL (130-400); WHITE BLOOD COUNT 9.04 K/uL (4.8-10.8)
[2017-01-28] MEDS: BuPROPion SR 100 MG TABCR PO SCH (07:51)
[2017-01-28] MEDS: HEPARIN SOD 5000 UNIT/0.5 ML CARP SQ SCH (07:57)
[2017-01-28 07:59] LABS: BUN/CREATININE RATIO 14.6 (10-20); CREATININE 1.22 mg/dl (0.60-1.20)
[2017-01-28] MEDS ORDERED: CEROVITE ADV FORMULA TAB PO SCH (08:00)
[2017-01-28] MEDS ORDERED: ESCITALOPRAM OXALATE 20 MG TAB PO SCH (08:00)
[2017-01-28] MEDS ORDERED: CALCIUM 600MG + VIT D 400 IU TAB PO SCH (08:00)
[2017-01-28] MEDS ORDERED: METOPROLOL SUCC 50MG EXT REL TAB PO SCH (08:00)
[2017-01-28] MEDS ORDERED: POTASSIUM CHLORIDE 20 MEQ TABCR PO SCH (08:00)
[2017-01-28 08:19] VITALS: BP 187/63; PULSE 107; TEMP 36.8; O2SAT 90
[2017-01-28] MEDS: INSULIN ASPART 100 UNITS/ML 3 ML PEN SC SCH ×2 (09:06→12:49)
[2017-01-28 10:38] VITALS: BP 147/75; PULSE 74
[2017-01-28] MEDS ORDERED: CEFTRIAXONE SOD INJ 1 GM in DEXTROSE 5% ADD-VANTAGE 50ML 50 ML IV SCH (13:00)
[2017-01-28 13:45] VITALS: BP 147/75; PULSE 74; TEMP 36.8; O2SAT 90
[2017-01-28] MEDS ORDERED: CEFD300C3 PO ×2 (13:51→13:58)
--- NOTE | 2017-01-28 14:05 | Discharge Instructions ---
Discharge Instructions Date of Service Jan 28, 2017. Admission Reason for Admission: Left Ankle Injury Discharge Discharge Diagnosis / Problem: Left ankle fracture, urinary tract infection Discharge Goals Goal(s): Decrease discomfort, Improve function, Diagnostic testing, Therapeutic intervention Activity Recommendations Activity Level: Assistance Required Therapies: Physical Therapy, Occupational Therapy Weightbearing Status: Left non-weightbearing . Additional Information Patient informed of condition: Yes Advance Directives: Yes DNR: Yes Level of Care: Acute Rehab Communicable Disease: No Prognosis: Stable Askew Catheter: No Instructions / Follow-Up Instructions / Follow-Up Patient admitted to the hospital following a fall and with increased confusion on top of her baseline dementia. The patient was found to have a left ankle fracture and has been having frequent falls at home. Emergency department case management attempted to place the patient at rehab but did not have availability until today. Orthopedics saw the patient and recommended to keep left lower extremity non-weightbearing. Left ankle/foot in splint. Patient also found to have urinary tract infection. She is tolerating oral antibiotic, afebrile, and vital signs are stable. No leukocytosis. She is stable for discharge to rehab. Medications: *Omnicef 300 mg PO BID x 6 more days. *Continue home medications as prescribed. Follow up: *Follow up with orthopedics Dr. Rodriguez on Thursday, 02/02. *Urine culture positive for 2 gram negative bacilli organisms, final identification and sensitivities pending. Follow up on culture & sensitivities , adjust antibiotics if needed. *Follow up with primary care provider within 1 week. Please seek medical attention if patient experiences fevers, chills, sweats, dizziness/lightheadedness, loss of consciousness, chest pain, shortness of breath, nausea, vomiting, numbness or tingling. Current Hospital Diet Patient's current hospital diet: Regular Diet, Diabetes Type 2 Diet Discharge Diet Recommended Diet: AHA Diet (Heart Healthy), Diabetes Type 2 Diet Pending Studies Studies pending at discharge: yes List of pending studies: Urine culture/sensitivities, blood cultures Physician Orders On Transfer Special Precautions: Left lower extremity non-weightbearing Fall precautions Dressing Changes: Splint/grazyna bandage to LLE Vital Signs: Routine Additional Orders: Follow up on urine culture and sensitivities and blood cultures and adjust antibiotics prn Laboratory Results Hemoglobin A1c Test 10/28/16 14:32 Range/Units Estimated Average Glucose 157 mg/dl Hemoglobin A1c 7.1 H 4.5-5.6 % Medical Emergencies . Who to Call and When: Medical Emergencies: If at any time you feel your situation is an emergency, please call 911 immediately. . Non-Emergent Contact Non-Emergency issues call your: Primary Care Provider Call Non-Emergent contact if: you have a fever, you have any medication questions . Past History Medical & Surgical History: (1) Fracture of fibula, distal, left, closed (2) UTI (urinary tract infection) . "Provider Documentation" section prepared by Nickie Bashir. . Core Measure Problem Core Measures: None
--- NOTE | 2017-01-28 14:23 | Discharge Summary ---
Discharge Summary Date of Service Jan 28, 2017. Discharge Summary Admission Date: Jan 27, 2017 at 19:10 Discharge Date: Jan 28, 2017 Discharge Disposition: Rehab ([facility]) Principal Diagnosis: Left ankle fracture, urinary tract infection Immunizations: Have You Had Influenza Vaccine: N/A Influenza Vaccine Date: Jan 19, 2005 History of Tetanus Vaccine?: Yes History of Pneumococcal: No History of Hepatitis B Vaccine: No Procedures: LEFT ANKLE 3 VIEWS HISTORY: Left ankle pain. fall COMPARISON: None. FINDINGS: Overlying cast material obscures fine bony detail. Comminuted fracture involving the distal shaft of the left fibula. This is nonsignificant the displaced. The distal tibia appears intact. Plantar heel spur. Dislocation. Well-corticated ossific densities adjacent to the medial malleolus are consistent with old avulsion injuries. No radiopaque foreign bodies. IMPRESSION: Comminuted and essentially nondisplaced fracture involving the distal shaft of the left fibula. L KNEE 1 OR 2 VIEWS ROUTINE CLINICAL HISTORY: Left knee pain status post trauma COMPARISON: None. DISCUSSION: There are postsurgical changes of a total left knee arthroplasty and patellar resurfacing. No acute fractures or dislocations are visualized. IMPRESSION: Postsurgical change. No acute fractures or dislocations identified. AP PELVIS AND RIGHT HIP 4 VIEWS CLINICAL HISTORY: Right hip pain status post trauma COMPARISON STUDY: No previous studies for comparison. FINDINGS: No acute fractures or subluxations of the right hip are visualized. There is an equivocal old healed fracture the left superior pubic ramus. There are postsurgical changes at the L5-S1 level. There is no symphysis diastases. There is no SI joint diastases. IMPRESSION: No acute fractures or dislocations identified. CT SCAN OF THE BRAIN WITHOUT IV CONTRAST CLINICAL HISTORY: Fall. COMPARISON STUDY: CT of the brain dated 06/24/2011. TECHNIQUE: Unenhanced axial CT scan of the brain is performed from the vertex to the skull base. FINDINGS: Brain parenchyma: There are age-related involutional changes noting moderate to advanced subcortical and periventricular microangiopathic change. There is no hemorrhage, mass effect, or evidence of acute territorial ischemia by CT criteria. 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 Price-white matter is preserved. No extra-axial fluid collection is seen. Ventricles, sulci, cisterns: Prominent secondary to involutional change. Intracranial vasculature: There is atherosclerotic calcification of the cavernous carotid and vertebral arteries. Calvarium: The skeletal structures are osteopenic. No depressed calvarial fracture is seen. Sinuses and mastoids: Fluid is seen in the sphenoid sinuses. The remaining visualized paranasal sinuses are clear. The mastoid air cells are well pneumatized. Orbits: The bony orbits are grossly intact. There are bilateral ocular lens implants. IMPRESSION: Senescent changes as above with no hemorrhage, mass effect, or evidence of acute territorial ischemia by CT criteria. CHEST ONE VIEW PORTABLE CLINICAL HISTORY: fall COMPARISON STUDY: 12/05/2013 FINDINGS: The heart is normal in size. No pneumothorax is visualized on the supine film. There are postsurgical changes of bilateral shoulder arthroplasties. There is no focal pulmonary consolidation. There is a suggestion of interstitial thickening, finding which may be accentuated given the supine technique.[ IMPRESSION: 1. Mild residual thickening 2. No evidence of focal pulmonary consolidation 3. No pneumothorax is visualized on this supine study. CERVICAL SPINE CT CT DOSE: 949.88 mGy.cm HISTORY: fall TECHNIQUE: Multiaxial CT images of the cervical spine were performed and reformatted in the sagittal and coronal plane without the use of contrast. A dose lowering technique was utilized adhering to the principles of ALARA. COMPARISON: None. FINDINGS: No fractures. There is 2 mm of anterolisthesis of C3 on C4. This is likely due to long-standing degenerative change. Mild reversal of the normal lordotic curvature. Severe disc space narrowing at C5-C6 and C6-C7 with endplate osteophytes. Moderate to severe disc space narrowing at C4-C5. Prevertebral soft tissues and the C1-C2 interval are intact. No pneumothorax. IMPRESSION: No fractures within the cervical spine. Degenerative changes as described above. Medication Reconciliation New Medications: Cefdinir (Cefdinir) 300 Mg Cap 300 MG PO BID for 6 Days, #12 CAP Continued Medications: Bupropion (Wellbutrin Sr) 100 Mg Ertab 100 MG PO BID, TAB Calcium Carbonate-Vitamin D W/ (Caltrate 600 Plus) 1 Tab Tab 1 TABLET PO DAILY Escitalopram Oxalate (Lexapro) 20 Mg Tab 20 MG PO DAILY Glipizide (Glipizide) 5 Mg Tab 7.5 MG PO DAILY Loperamide Hcl (Imodium) 2 Mg Cap 4 MG PO PRN, 0 Refills Lorazepam (Ativan) 1 Mg Tab 1-1.5 MG PO HS, TAB Methylcellulose (Laxative) (Citrucel) 500 Mg Tab 1000 MG PO DAILY Metoprolol Succ (Toprol Xl) (Toprol-Xl ) 100 Mg Tabcr 100 MG PO DAILY, TAB Multiple Vitamins W/ Minerals (Centrum) 1 Tab Tab 1 TAB PO DAILY Omeprazole (Prilosec) 20 Mg Capcr 20 MG PO DAILY, CAP Potassium Ext Rel (Klor-Con) 20 Meq Tabcr 20 MEQ PO DAILY, TAB Discharge Exam Patient pleasantly confused, has dementia at baseline. She denies any pain in her left ankle and denies any complaints. The patient denies fevers, chills, sweats, chest pain, palpitations, claudication, cough, wheezing, shortness of breath, nausea, vomiting, abdominal pain, dysuria, hematuria, urinary retention , paralysis, weakness, numbness and tingling. Review of Systems: Constitutional: No fever, No chills, No sweats Eyes: No worsening of vision, No eye pain, No diplopia ENT: No hearing loss, No nasal symptoms, No trouble swallowing Respiratory: No cough, No wheezing Cardiovascular: No chest pain, No claudication, No palpitations Abdomen: No pain, No nausea, No vomiting Musculoskeletal: No joint pain, No muscle pain, No calf pain Genitourinary - Female: No dysuria, No urinary retention, No hematuria Neurologic: No paralysis, No weakness, No numbness/tingling Integumentary: No rash, No itch, No color change Physical Exam: General Appearance: WD/WN, no apparent distress, + obese Eyes: normal inspection, PERRL, EOMI ENT: normal ENT inspection, hearing grossly normal, pharynx normal Neck: supple, no JVD, trachea midline Respiratory/Chest: lungs clear, normal breath sounds, no respiratory distress Cardiovascular: regular rate, rhythm, no gallop, no murmur Abdomen / GI: normal bowel sounds, non tender, soft Extremities: no calf tenderness, no pedal edema, + pertinent finding (LLE in splint and grazyna bandage) Neurologic/Psychiatric: alert, normal mood/affect, + disoriented ( disoriented to place and time, but knew correct month) Skin: normal color, warm/dry, no rash Hospital Course 87 y/o female with a history of DM II, CKD stage III, HTN, depression, dementia , and GERD, who presented to the ED because of 3 falls over the last 24 hours and increased confusion. ED case management attempted to place pt at [facility] for rehab but did not have beds available at that time, but would likely have one open following day. Left closed distal fibula fracture, multiple falls--stable - Admit to med/surg observation - Pt to go to [facility] for rehab, had been living at home with daughter - Tylenol PRN for pain management. Denies pain - Ortho saw in ED, non-weightbearing on LLE - F/u w/ Dr. Rodriguez on 02/02 - Head CT, CXR, cervical spine CT, hip/pelvis x-ray, left knee x-ray all negative for acute findings AMS likely secondary to UTI POA, could also be contributing to recent falls-- stable - Started on Rocephin - Switched to Omnicef 300 mg PO BID - Urine culture positive for 2 GNR organisms, sensitivities pending - Blood cultures pending - Afebrile, VSS, no leukocytosis CKD stage III--stable -Creatinine stable at baseline DM II--last HgbA1c checked 10/28/16 was 7.1 - Continue Glipizide 7.5 mg PO qd - Insulin sliding scale - Check BSGs q ac and qhs HTN--stable -Continue metoprolol succinate 100 mg PO qd Depression, dementia--stable -Continue Lexapro 20 mg PO qd, Ativan 1 mg PO HS, Wellbutrin 100 mg PO BID GERD -Prilosec 20 mg PO qd DVT prophylaxis -Heparin 5000 units SC q12h Code Status -Level V, DO NOT RESUSCITATE Dispo -Accepted to [facility] for rehab Total Time Spent: Greater than 30 minutes This includes examination of the patient, discharge planning, medication reconciliation, and communication with other providers. Discharge Instructions Please refer to the electronic Patient Visit Report (Discharge Instructions) for additional information. Additional Copies To Myron Palencia M.D.
[2017-01-28] MEDS ORDERED: ATV/1 PO (14:49)
[2017-01-28] MEDS ORDERED: CEFDINIR 300 MG CAP PO SCH (16:00)
== END 2017-01-28 15:06 ==
LOC: EDBD 10:35 → C.EDA 10:36 → CANRESERV 18:20 → ENRESERV 18:20 → EDBEDREQSVC 18:35 → ENRESERV 18:51 → C.4E 19:10
PROVIDERS: ADMIT Family Medicine; ATTEND Hospitalist
DX: S82.842A Displaced bimalleolar fracture of left lower leg, initial encounter for closed fracture (principal); S93.02XA Subluxation of left ankle joint, initial encounter; W19.XXXA Unspecified fall, initial encounter; Y92.89 Other specified places as the place of occurrence of the external cause; N39.0 Urinary tract infection, site not specified; Z79.899 Other long term (current) drug therapy; I13.0 Hypertensive heart and chronic kidney disease with heart failure and stage 1 through stage 4 chronic kidney disease, or unspecified chronic kidney disease; E11.22 Type 2 diabetes mellitus with diabetic chronic kidney disease; N18.3 Chronic kidney disease, stage 3 (moderate); F32.9 Major depressive disorder, single episode, unspecified; F03.90 Unspecified dementia, unspecified severity, without behavioral disturbance, psychotic disturbance, mood disturbance, and anxiety; M85.80 Other specified disorders of bone density and structure, unspecified site

== ENCOUNTER 2017-02-02 16:03 | Inpatient (IN) | payer BC, OTHER ==
[~2017-02-02] VITALS: Ht 167.6 cm; Wt 116.3 kg
[~2017-02-02 16:03] MED LIST changes: -AMLO5TAB4 PO; +ATV/1 PO; -ATV1 PO; +CEFD300C3 PO; -CEPH500C PO; -CNT PO; -MCRK20 PO; +METO100T44 PO; -METO50TA7 PO; +MULTTAB5 PO; +POTA20TA16 PO
[2017-02-02 17:30] VITALS: BP 141/76; PULSE 75; TEMP 37.2; O2SAT 96; Ht 167.6 cm; Wt 116.3 kg
[2017-02-02] MEDS ORDERED: NURSING VERBAL MED ORDER ONE (17:45)
[2017-02-02] MEDS ORDERED: LABETALOL HCL IV 5 MG/ML 20ML IV PRN (18:00)
[2017-02-02] MEDS ORDERED: ATROPINE SULFATE 0.1 MG/ML 5ML SYR IV PRN (18:00)
[2017-02-02] MEDS ORDERED: PHENYLEPHRINE 100MCG/ML 5ML SYR IV PRN (18:00)
[2017-02-02] MEDS ORDERED: CEFAZOLIN 2000MG IV PUSH 10 ML IV SCH (18:00)
[2017-02-02] MEDS ORDERED: FENTANYL CITRATE INJ 50 MCG/1 ML 2 ML VIAL IV PRN (18:00)
[2017-02-02] MEDS ORDERED: HYDROmorphone INJ 2 MG/ML SYR/VIAL IV PRN (18:00)
[2017-02-02] MEDS ORDERED: FLUMAZENIL 0.1 MG/1 ML 10 ML VIAL IV PRN (18:00)
[2017-02-02] MEDS ORDERED: MEPERIDINE HCL 25 MG/ML CARP IV PRN (18:00)
[2017-02-02] MEDS ORDERED: NALOXONE HCL 0.4 MG/1 ML VIAL/CARP IV PRN (18:00)
[2017-02-02] MEDS ORDERED: EpHEDrine SULFATE INJ 50 MG/ML AMP IV PRN (18:00)
[2017-02-02] MEDS ORDERED: ONDANSETRON INJ 2 MG/ML 2 ML VIAL IV PRN (18:00)
[2017-02-02] MEDS ORDERED: BACITRACIN 50000 UNIT VIAL ONE (18:04)
[2017-02-02] MEDS ORDERED: BUPIVACAINE/EPINEPHRINE 0.5% MPF 1:200,000 30 ML VIAL ONE (18:04)
[2017-02-02] MEDS ORDERED: FENTANYL CITRATE INJ 50 MCG/1 ML 2 ML VIAL ONE ×2 (18:06→21:10)
[2017-02-02] MEDS ORDERED: MIDAZOLAM HCL 1 MG/ML 2ML VIAL ONE (18:06)
[2017-02-02] MEDS ORDERED: PROPOFOL IV EMULSION 10 MG/ML 20 ML VIAL IV ONE (18:08)
[2017-02-02] MEDS ORDERED: SUCCINYLCHOLINE CHLORIDE 20 MG/ML 10 ML VIAL IV ONE (18:08)
[2017-02-02] MEDS ORDERED: ONDANSETRON INJ 2 MG/ML 2 ML VIAL ONE (18:08)
[2017-02-02] MEDS ORDERED: LIDOCAINE HCL 2% 2 ML VIAL (20MG/ML) ONE (18:08)
--- NOTE | 2017-02-02 18:14 | History and Physical ---
History & Physical Date Feb 02, 2017. History of Present Illness The patient is a 87 year old female with complaints of left ankle fracture. She sustained a fall on the . She had a comminuted fibula fracture. Her splint was removed to examine her skin ensure there is no open injury. X-rays in the office demonstrated that the ankle had dislocated laterally. Patient has a history of diabetes with neuropathy and is not really complaining of much pain. We attempted to closed reductions in the office and were unable to get the ankle appropriately reduced. There is concern for the medial skin with the ankle still subluxed. Past Medical/Surgical History Medical Problems: (1) Dementia, unspecified, with behavioral disturbance (2) DJD (degenerative joint disease) (3) Esophageal reflux (4) Essential (primary) hypertension (5) Fracture of fibula, distal, left, closed (6) Hypothyroidism, unspecified (7) Left ankle injury (8) Polymyalgia rheumatica (9) Postoperative confusion Surgical Problems: (1) Knee joint replacement status Allergies Coded Allergies: Sulfa Drugs (Verified Adverse Reaction, Mild, vomiting, 01/27/17) Home Medications Scheduled Bupropion (Wellbutrin Sr), 100 MG PO BID Calcium Carbonate-Vitamin D W/ (Caltrate 600 Plus), 1 TABLET PO DAILY Cefdinir (Cefdinir), 300 MG PO BID Escitalopram Oxalate (Lexapro), 20 MG PO DAILY Glipizide (Glipizide), 7.5 MG PO DAILY Loperamide Hcl (Imodium), 4 MG PO PRN Lorazepam (Ativan), 1 MG PO HS Methylcellulose (Laxative) (Citrucel), 1,000 MG PO DAILY Metoprolol Succ (Toprol Xl) (Toprol-Xl ), 100 MG PO DAILY Multiple Vitamins W/ Minerals (Centrum), 1 TAB PO DAILY Omeprazole (Prilosec), 20 MG PO DAILY Potassium Ext Rel (Klor-Con), 20 MEQ PO DAILY Physical Examination Skin: warm/dry Eyes: normal inspection ENT: normal ENT inspection Head: normocephalic Neck: supple Respiratory/Chest: lungs clear Cardiovascular: regular rate, rhythm Extremities: + pertinent finding (left ankle: There is blistering over the medial malleolus, significant swelling or extremity ecchymoses distally over the foot as well as some mild ecchymosis proximally along the entirety of the tibia. No significant tenderness or pain with manipulation of the ankle even while trying to get the ankle reduced. Crepitation is felt upon attempted reduction again the patient really does not complain of any pain.) Plan of Treatment Left ankle fracture dislocation We were unable to get the ankle appropriately reduced in the office. My concern is that the medial skin will not survive night if we leave the ankle subluxed as it is. So we are emergently taking her to surgery and the plan will be for either external fixation of the ankle or open reduction internal fixation of the distal fibula fracture dependent on my assessment of her skin once we get her to the operating room. Risks, benefits, alternatives to surgery were discussed with the patient and her family these are including but not limited to infection, pain, stiffness, nonunion, need for more surgery, damage to blood vessels, damage to blood nerves risk of anesthesia.
[2017-02-02] MEDS ORDERED: GLUCOSE 10 TABS/TUBE PO PRN (18:30)
[2017-02-02] MEDS ORDERED: DEXTROSE 50% 50 ML SYR IV PRN (18:30)
[2017-02-02] MEDS ORDERED: GLUCAGON FOR INJ 1 MG VIAL SQ PRN (18:30)
[2017-02-02] MEDS ORDERED: GLUCOSE 40% GEL 15 GM TUBE PO PRN (18:30)
--- NOTE | 2017-02-02 18:30 | Medical Consult ---
Consultation Date of Consultation: Feb 02, 2017. Attending Physician: Myron Rodriguez M.D. Reason for Consultation: Medical Management History of Present Illness Ms. 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 Patient was admitted recently for this fracture that was initially planned for medical management. However, reduction was inadequate in the office and there is concern for tissue compromise due to subluxation and will proceed with surgical intervention. Patient has advanced dementia and verbalizes no complaints. HPI obtained by family members at bedside due to dementia. Patient lives with her 1 daughter but was recently at [facility] after her previous admission. They report good control of diabetes with last A1c in October of 7.1. Her creatinine on previous to admission was 1.2 with baseline appearing to be 1.4. She was previously treated for UTI earlier this month. Per family, patient sustained a postoperative DVT after R TKA approximately 10-15 years ago. They vaguely mention a clotting disorder as a child but cannot elaborate further. They deny any recent DVT/PE. They deny a history of cardiac events. They say she has never complained of any chest pain in the past. There reporting her at baseline mentation. Past Medical/Surgical History 1. T2DM with Peripheral Neuropathy 2. CKD Stage III 3. NAS on CPAP 4. HTN 5. Dementia 6. Chronic Low Back Pain/Lumbar Stenosis 7. Chronic Gait Disturbance/Frequent Falls 8. L Ankle Fx 9. H/O DVT S/P R TKA 10. S/P BLANCO BSO Family History Cancer Diabetes mellitus Social History Smoking Status: Never Smoker Smokeless Tobacco Use: No Drug Use: none Marital Status: Housing Status: lives with family Occupation Status: retired Allergies Coded Allergies: Sulfa Drugs (Verified Adverse Reaction, Mild, vomiting, 01/27/17) Current Inpatient Medications Current Inpatient Medications Medications (Trade) Dose Ordered Sig/Armida Route Start Time Stop Time Status Last Admin Dose Admin Cefazolin Sodium 10 ml @ 2.5 mls/min TODAY@1800 IV 02/02/17 18:00 02/02/17 23:59 Hydromorphone HCl (Dilaudid Inj) 0.5 mg Q5M PRN IV 02/02/17 18:00 02/02/17 23:00 Fentanyl Citrate (Fentanyl Inj) 25 mcg Q5M PRN IV 02/02/17 18:00 02/02/17 23:00 Naloxone HCl (Narcan Inj) 0.2 mg Q2M PRN IV 02/02/17 18:00 02/02/17 23:00 Meperidine HCl (Demerol Inj) 12.5 mg Q5M PRN IV 02/02/17 18:00 02/02/17 23:00 Ondansetron HCl (Zofran Inj) 4 mg ONE PRN IV 02/02/17 18:00 02/02/17 23:00 Flumazenil (Romazicon Inj) 0.2 mg Q2M PRN IV 02/02/17 18:00 02/02/17 23:00 Labetalol HCl (Normodyne IV) 5 mg Q5M PRN IV 02/02/17 18:00 02/02/17 23:00 Ephedrine Sulfate (EpHEDrine SULFATE INJ) 5 mg Q5M PRN IV 02/02/17 18:00 02/02/17 23:00 Atropine Sulfate (Atropine Sulfate 0.1MG/Ml Inj) 0.5 mg Q1M PRN IV 02/02/17 18:00 02/02/17 23:00 Phenylephrine HCl (William-Synephrine 500MCG/5ML Syr) 100 mcg Q5M PRN IV 02/02/17 18:00 02/02/17 23:00 Review of Systems Constitutional: No fever, No chills Respiratory: No cough, No shortness of breath Cardiovascular: No chest pain Abdomen: No pain, No nausea, No vomiting Genitourinary - Female: No dysuria Hematologic / Lymphatic: No abnormal bleeding/bruising Physical Exam General Appearance: WD/WN, no apparent distress Head: normocephalic, atraumatic Eyes: sclerae normal Neck: supple, no JVD, trachea midline Respiratory/Chest: lungs clear, no respiratory distress, no accessory muscle use, + decreased breath sounds (at bases b/l) Cardiovascular: regular rate, rhythm, no gallop, no murmur Abdomen/GI: normal bowel sounds, non tender, soft Extremities/Musculoskelatal: + pertinent finding (LLE from meade to foot with INA wrap C/D/I; bilateral lymphadema of lower extremities) Neurologic/Psych: alert, + disoriented Skin: normal color, warm/dry Assessment & Plan Ms. 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 L Ankle Fracture: Concern for Tissue Compromise 2/2 Subluxation: - Due to surgery by Dr. Rodriguez on 02/02 - Pain management, DVT prophylaxis, IVF, PT/OT per primary service Pre-Operative Clearance: - EKG reviewed without acute ischemic findings - no verbalize chest pain; family members report no cardiac history - Kidney disease is stable and slightly improved from baseline - will need to be monitored - No direct sources of infection - no labs or imaging to utilize prior to surgery; recent UTI that was treated; given concern for tissue compromise the foot could become a risk for infection - Patient with poor overall functioning; family reports she is largely bedridden but was ambulating which resulted in her most recent falls - Discussed risk/benefit - given orthopedic procedure, patient age, and comorbidities - she is at risk for cardiopulmonary complications - this was discussed with family and will proceed with surgical intervention CKD Stage III: STABLE - Baseline creatinine appears to be 1.4 - continue to monitor kidney function and avoid nephrotoxic agents T2DM with Neuropathy: - Hold Glipizide pending adequate oral intake - Cover with SSI - goal range 140-180 and correction factor 35 HTN: - Toprol XL 100 mg daily NAS on CPAP: - May use own CPAP machine Dementia/Depression/Anxiety: - At baseline mentation - Hold Ativan 1 mg HS tonight given anesthesia - can be resumed tomorrow - Wellbutrin 100 mg BID and Lexapro 20 mg daily Recent UTI: - Finished Omnicef - monitor for any UTI symptoms Thank you for the consultation, hospitalist service will continue to follow.
[2017-02-02] MEDS ORDERED: BUPIVACAINE 0.5 % 5 MG/1 ML MPF 30ML VIAL ONE (18:52)
[2017-02-02] MEDS ORDERED: EpHEDrine SULFATE 50MG/5ML SYR ONE (18:56)
--- NOTE | 2017-02-02 19:04 | HISTORY & PHYSICAL EXAMINATION ---
DATE OF ADMISSION: 02/02/2017 CHIEF COMPLAINT: Left ankle pain. HISTORY OF PRESENT ILLNESS: The patient is an 87-year-old female who complains of left ankle pain. The patient presents with a fracture on the left side that was result of a traumatic incident on 01/27/2017. She said it was the result of a fall. She was seen at [facility] emergency room where she was splinted. PAST MEDICAL HISTORY: Significant for sleep apnea, anxiety, non-insulin dependent diabetes, hypothyroidism, GERD and a history of DVT. PAST SURGICAL HISTORY: Bilateral total knee arthroplasty, bilateral total shoulder arthroplasty, total hysterectomy and back surgery. SOCIAL HISTORY: She denies alcohol use. She denies smoking or tobacco use. She denies IV or illegal drug use. She is currently retired. FAMILY HISTORY: Noncontributory. ALLERGIES: SHE IS ALLERGIC TO SULFA MEDICATIONS. MEDICATIONS: Ativan 1 mg by mouth at bedtime for sleep and anxiety, bupropion 100 mg p.o. 2 times a day for depression, calcium carbonate, vitamin D 1 tablet for supplementation, cefdinir 300 mg 1 capsule by mouth 3 times a day for UTI for 6 days, Centrum Silver, multivitamin, citalopram 20 mg 1 tablet by mouth for depression, glipizide 7.5 mg by mouth with breakfast, Klor-Con 20 mEq by mouth once a day for supplement, metoprolol, 24-hour, 100 mg 1 tablet as needed for hypertension, omeprazole 20 mg 1 tablet by mouth in the morning for GERD. REVIEW OF SYSTEMS: She denies headaches, fevers, chills, double vision, blurry vision, sore throat, cough, chest pain, nausea, vomiting, diarrhea, numbness, tingling, tired, thoughts to harm herself or harm others and depression. She is positive for joint pain and joint stiffness of the left ankle as well as urinary burning and pressure. PHYSICAL EXAMINATION: GENERAL APPEARANCE: The patient is an 87-year-old female sitting in no acute distress in a wheelchair. She is well dressed, well nourished. She is awake, alert and oriented x3. She is 5 feet 6 inches tall. HEENT: Extraocular movements are intact. Normocephalic, atraumatic. Mucosa was moist. NECK: Supple with no lymphadenopathy, no JVD, no thyromegaly. HEART: Regular rate and rhythm with no murmurs or gallops. LUNGS: Clear to auscultation. No wheezing or rhonchi. ABDOMEN: Soft, nontender, nondistended. Normal bowel sounds, no hepatosplenomegaly. EXTREMITIES: Paying particular attention to the left ankle, that is in a splint, which has diffuse swelling and ecchymosis with limited range of motion due to pain. NEUROLOGIC: Cranial nerves II-XII are intact. Pulses were compared bilaterally and were equal. IMAGING: Three view x-rays of the left ankle demonstrates a comminuted distal fibula fracture. IMPRESSION: Left ankle fracture. PLAN: The patient is scheduled for an ORIF of the left ankle fracture. Reduction was attempted in the office 2 times with minimal success thus she is scheduled for an ORIF of her left ankle fracture. Risks and benefits were discussed with the patient and included but not limited to infection, DVT, increased pain, stiffness, need for revision surgeries, failure to relieve any of her symptoms, damage to blood vessels, damage to nerves, loss of blood, DVT, infection, anesthesia risks and were all discussed with her. The patient understands these risks and wishes to proceed. All questions were answered to her satisfaction. SORIN
--- NOTE | 2017-02-02 20:39 | DIAGNOSTIC IMAGING REPORT ---
L ANKLE 2 VIEWS CLINICAL HISTORY: 87 years-old Female presenting with ORIF LT ANKLE. TECHNIQUE: 3 fluoroscopic spot image(s) obtained as part of an intraoperative procedure. COMPARISON: 01/27/2017. FINDINGS/IMPRESSION: There has been interval cortical compression plate and screw fixation across the distal fibular metadiaphysis with a transsyndesmotic screw also noted. A butterfly fracture fragment along the medial aspect of the distal fibula is minimally displaced. Overall normal anatomic alignment. Ankle mortise grossly intact. Please see surgical report for further details. Fluoroscopy dosage (mGy): Not available. Fluoroscopy time: 2 minutes 29 seconds. Number of fluoroscopic spot images: 3. Electronically signed by: Myron Son M.D. 02/02/2017 8:38 PM Dictated Date/Time: 02/02/2017 8:37 PM
[2017-02-02] MEDS: INSULIN ASPART 100 UNITS/ML 3 ML PEN SC SCH (21:00)
--- NOTE | 2017-02-02 21:53 | [facility] Operative Report ---
Operative Report Operative Date Feb 02, 2017. Pre-Operative Diagnosis Left bimalleolar ankle fracture dislocation Post-Operative Diagnosis Same plus syndesmosis disruption Procedure(s) Performed Open reduction internal fixation left bimalleolar ankle fracture, open reduction internal fixation syndesmosis disruption Surgeon Dr. Rodriguez Enrichment Director Surgeon(s) same Estimated Blood Loss 200cc Findings Unstable bimalleolar ankle fracture with disruption of the syndesmosis Specimens None Drains one DUKE drain Anesthesia Gen. Complication(s) None Disposition Recovery Room / PACU Indications 87-year-old female who sustained a bimalleolar ankle fracture. We evaluated her skin in the office and to ensure that there is no open injury. She unfortunately dislocated without the splint in place. We attempted to reduce the ankle in the office. We are able to get it in better position but not adequately reduced. She was RAD developing was stirring over the medial side from the medial malleolus. I was concerned that her skin with necrosis if left in a subluxed position. She presents for open reduction internal fixation versus external fixation. Description of Procedure Risks benefits and alternatives of surgery including but not limited to infection, DVT, pain, stiffness, nonunion, need for revision surgery, damage to blood vessels damage to nerves or risks of anesthesia were discussed with the patient and she wished to proceed. Patient was identified in the laterality was confirmed and marked. A well-padded tourniquet was applied and then the limb was prepped and draped in standard manner with Betadine. The limb was exsanguinated and the tourniquet was inflated. She had swelling distally along the leg however I thought that it was reasonable to proceed with open reduction and internal fixation. There was a region over the medial malleolus where the skin has started to blister and it felt quite thin and boggy. I made a longitudinal incision over the distal aspect of the fibula. I sharply incised the skin and then used Bovie electrocautery to achieve hemostasis. I then dissected down to the fibular fracture cleared it of any interposing soft tissue and then reduced the fracture with a crab claw clamp. I then positioned into place a 12 hole one third semitubular locking plate. Once I was satisfied with the reduction I placed a nonlocking screw distally and then a another nonlocking screw proximally. I confirmed reduction on fluoroscopy. I then placed 3 locking screws distally and 3 locking screws proximally. There was a significant region of comminution that we bridged with the plate. I then checked the stability of the syndesmosis. The syndesmosis was found to be unstable. I therefore placed a screw transversing the fibula into the tibia in a formal course he fashion after making a small incision on the medial side to place my clamp. I once again confirmed the stability of the syndesmosis with a good stability with the syndesmotic screw. I confirmed reduction on AP, lateral and mortise views. The region where readmitted incision medially I placed a DUKE drain through this incision distally into the region of the blistering to help decompress the skin in this region and hopefully relieve some tension on the skin. The wounds were thoroughly irrigated. Deep tissues was closed with interrupted 2-0 Vicryl suture. The subcutaneous tissue was closed with interrupted 3-0 Vicryl suture. The skin was closed with 3-0 nylon. A sterile dressing was applied and an AO was splint placed. All needle and sponge counts were correct at the end of the procedure. The patient was transferred to the PACU in stable condition without apparent complication. The PA-C was necessary for assistance with procedure for assistance in positioning, prepping, draping, retraction and closure. I attest to the content of the Intraoperative Record and any orders documented therein. Any exceptions are noted below.
[2017-02-02] MEDS ORDERED: ALUMINUM/MAGNESIUM/SIMETH (MAALOX MAX) 30 ML UDC PO PRN (22:00)
[2017-02-02] MEDS ORDERED: LOPERAMIDE HCL 2 MG CAP PO PRN (22:00)
[2017-02-02] MEDS ORDERED: MAGNESIUM HYDROXIDE SUSP 30 ML UDC PO PRN (22:00)
[2017-02-02] MEDS ORDERED: NO NSAIDS SCH (22:00)
[2017-02-02] MEDS ORDERED: MoRPHine SULFATE 2 MG/ML CARP IV PRN (22:00)
--- NOTE | 2017-02-02 22:12 | Anesthesiology Progress Note ---
Anesthesia Post Op Note Date & Time Feb 02, 2017 at 22:12 Vital Signs Pain Intensity: 0 Vital Signs Past 12 Hours Date Time Temp Pulse Resp B/P (MAP) Pulse Ox O2 Delivery O2 Flow Rate FiO2 02/02/17 22:00 75 17 159/79 96 Nasal Cannula 4 02/02/17 21:50 73 19 169/63 96 Oxymask 10 02/02/17 21:40 73 18 172/79 97 Oxymask 10 02/02/17 21:33 36.7 73 16 158/86 96 Oxymask 10 02/02/17 18:25 36.6 64 16 152/73 (99) 95 Room Air 02/02/17 17:30 37.2 75 18 141/76 96 Room Air 02/02/17 17:30 37.2 75 18 141/76 (97) 96 Room Air Notes Mental Status: alert / awake / arousable, participated in evaluation Pt Amnestic to Procedure: Yes Nausea / Vomiting: adequately controlled Pain: adequately controlled Airway Patency, RR, SpO2: stable & adequate BP & HR: stable & adequate Hydration State: stable & adequate Anesthetic Complications: no major complications apparent
[2017-02-02 22:30] VITALS: BP 151/82; PULSE 74; TEMP 37.2; O2SAT 98
[2017-02-02] MEDS ORDERED: ACETAMINOPHEN 500 MG TAB PO ONE (22:39)
[2017-02-02] MEDS: ACETAMINOPHEN 500 MG TAB PO SCH (22:42)
[2017-02-02] MEDS: BuPROPion SR 100 MG TABCR PO SCH (22:45)
[2017-02-02 23:00] VITALS: BP 134/63; PULSE 72; TEMP 36.9; O2SAT 97
[2017-02-02 23:30] VITALS: BP 126/68; PULSE 72; TEMP 37; O2SAT 98
[2017-02-03] VITALS (9 sets, daily range): BP systolic 104–153; BP diastolic 51–75; PULSE 71–77; TEMP 36.6–37.2; O2SAT 91–98
[2017-02-03] MEDS: OXYCODONE HCL IR 5 MG TAB (IMMEDIATE RELEASE) PO PRN ×2 (03:52→10:55)
[2017-02-03] MEDS: CEFAZOLIN IV 2,000 MG in SYRINGE 0 ML IV SCH ×2 (03:53→10:56)
[2017-02-03] MEDS: ACETAMINOPHEN 500 MG TAB PO SCH ×3 (06:19→20:58)
--- NOTE | 2017-02-03 06:52 | Orthopedic Progress Note ---
Orthopedic Progress Note Date of Service Feb 03, 2017. Subjective Post OP Day: 1 Reports: feeling well, pain controlled w PO medications, Denies: complaints, chest pain, SOB, nausea / vomiting, light headedness, calf pain Objective calves soft nontender, N/V intact, capillary refill less than 2 sec., dressing C /D/I, A&O x3, toes mobile, hemovac drainage (10ml) Date Time Temp Pulse Resp B/P (MAP) Pulse Ox O2 Delivery O2 Flow Rate FiO2 02/03/17 03:50 36.6 74 16 145/75 (98) 98 Nasal Cannula 2.0 02/03/17 01:40 37.0 77 16 140/64 (89) 97 Nasal Cannula 2.0 02/03/17 00:30 36.6 73 16 139/65 (89) 96 Nasal Cannula 3.0 02/03/17 00:30 Nasal Cannula 2.0 02/02/17 23:30 37.0 72 18 126/68 (87) 98 Nasal Cannula 3.0 02/02/17 23:00 36.9 72 16 134/63 (86) 97 Nasal Cannula 3.0 02/02/17 22:30 37.2 74 16 151/82 (105) 98 Nasal Cannula 4.0 02/02/17 22:30 Nasal Cannula 3.0 02/02/17 22:15 74 16 141/73 97 Nasal Cannula 4 02/02/17 22:10 36.6 72 15 165/74 95 Nasal Cannula 4 02/02/17 22:00 75 17 159/79 96 Nasal Cannula 4 02/02/17 21:50 73 19 169/63 96 Oxymask 10 02/02/17 21:40 73 18 172/79 97 Oxymask 10 02/02/17 21:33 36.7 73 16 158/86 96 Oxymask 10 02/02/17 18:25 36.6 64 16 152/73 (99) 95 Room Air 02/02/17 17:30 37.2 75 18 141/76 96 Room Air 02/02/17 17:30 37.2 75 18 141/76 (97) 96 Room Air Laboratory Results 24 Hours: Test 02/03/17 06:36 Assessment & Plan Assessment: POD #1 Left ORIF bimalleolar fracture and syndesmosis disruption. Plan: Medical management - appreciate medicine input. PT/OT DVT - ASA Discharge - back to SNF when stable Inhouse Planning Pain Management: Morphine, PO Tylenol, Oxy IR DVT Prophylaxis: ASA Discharge Planning Discharge Planning: alf facility Pain Management: Oxy IR
[2017-02-03 06:58] LABS: BASO % 0.6 %; BASO ABS # 0.06 K/uL (0-0.2); EOS % 3.2 %; IG% 0.1 %; LYMPH % 19.1 %; LYMPH ABS # 2.06 K/uL (1.2-3.4); MEAN CELL VOLUME 95.9 fL (80-100); MEAN CORPUSCULAR HEMOGLOBIN 30.4 pg (25-34); MEAN CORPUSCULAR HGB CONC 31.7 g/dl (32-36); MEAN PLATELET VOLUME 10.1 fL (7.4-10.4); PLATELET COUNT 222 K/uL (130-400); RED BLOOD COUNT 3.65 M/uL (4.2-5.4); WHITE BLOOD COUNT 10.77 K/uL (4.8-10.8)
[2017-02-03 07:31] LABS: BUN/CREATININE RATIO 20.8 (10-20); CALCIUM 8.6 mg/dl (8.5-10.1); CREATININE 1.46 mg/dl (0.60-1.20); POTASSIUM 4.6 mmol/L (3.5-5.1)
--- NOTE | 2017-02-03 07:42 | Anesthesiology Progress Note ---
Anesthesia Post Op Note Date & Time Feb 03, 2017 at 07:42 Vital Signs Pain Intensity: 0.0 Vital Signs Past 12 Hours Date Time Temp Pulse Resp B/P (MAP) Pulse Ox O2 Delivery O2 Flow Rate FiO2 02/03/17 07:11 36.9 75 18 153/71 (98) 97 Room Air 02/03/17 03:50 36.6 74 16 145/75 (98) 98 Nasal Cannula 2.0 02/03/17 01:40 37.0 77 16 140/64 (89) 97 Nasal Cannula 2.0 02/03/17 00:30 36.6 73 16 139/65 (89) 96 Nasal Cannula 3.0 02/03/17 00:30 Nasal Cannula 2.0 02/02/17 23:30 37.0 72 18 126/68 (87) 98 Nasal Cannula 3.0 02/02/17 23:00 36.9 72 16 134/63 (86) 97 Nasal Cannula 3.0 02/02/17 22:30 37.2 74 16 151/82 (105) 98 Nasal Cannula 4.0 02/02/17 22:30 Nasal Cannula 3.0 02/02/17 22:15 74 16 141/73 97 Nasal Cannula 4 02/02/17 22:10 36.6 72 15 165/74 95 Nasal Cannula 4 02/02/17 22:00 75 17 159/79 96 Nasal Cannula 4 02/02/17 21:50 73 19 169/63 96 Oxymask 10 02/02/17 21:40 73 18 172/79 97 Oxymask 10 02/02/17 21:33 36.7 73 16 158/86 96 Oxymask 10 Notes Mental Status: alert / awake / arousable, participated in evaluation Pt Amnestic to Procedure: Yes Nausea / Vomiting: adequately controlled Pain: adequately controlled Airway Patency, RR, SpO2: stable & adequate BP & HR: stable & adequate Hydration State: stable & adequate Anesthetic Complications: no major complications apparent
[2017-02-03 07:45] LABS: COMPLETE YES
[2017-02-03] MEDS: INSULIN ASPART 100 UNITS/ML 3 ML PEN SC SCH ×4 (08:56→20:46)
[2017-02-03] MEDS: CEROVITE ADV FORMULA TAB PO SCH (08:58)
[2017-02-03] MEDS: PANTOprazole SOD 40 MG TAB PO SCH ×2 (08:58→09:00)
[2017-02-03] MEDS: ASPIRIN 325 MG ECTAB PO SCH ×2 (08:58→20:58)
[2017-02-03] MEDS: METOPROLOL SUCC 50MG EXT REL TAB PO SCH (08:59)
[2017-02-03] MEDS: BuPROPion SR 100 MG TABCR PO SCH ×2 (08:59→20:58)
[2017-02-03] MEDS: ESCITALOPRAM OXALATE 20 MG TAB PO SCH (09:00)
[2017-02-03] MEDS ORDERED: MULTIVITAMIN TAB PO SCH (09:00)
[2017-02-03] MEDS: CEFDINIR 300 MG CAP PO SCH ×2 (09:01→20:57)
[2017-02-03] MEDS: POTASSIUM CHLORIDE 20 MEQ TABCR PO SCH (09:01)
[2017-02-03] MEDS: FERROUS GLUCONATE 324 MG TAB PO SCH ×3 (09:01→18:02)
[2017-02-03] MEDS: METHYLCELLULOSE POWDER 454 GM JAR PO SCH (09:02)
[2017-02-03] MEDS: LORAZEPAM 1 MG TAB PO SCH (20:57)
[2017-02-04] MEDS: ACETAMINOPHEN 500 MG TAB PO SCH ×3 (05:32→21:11)
[2017-02-04 07:12] LABS: HEMATOCRIT 33.8 % (37-47); MEAN CELL VOLUME 95.8 fL (80-100); MEAN CORPUSCULAR HEMOGLOBIN 29.7 pg (25-34); MEAN CORPUSCULAR HGB CONC 31.1 g/dl (32-36); MEAN PLATELET VOLUME 9.8 fL (7.4-10.4); PLATELET COUNT 201 K/uL (130-400); RED BLOOD COUNT 3.53 M/uL (4.2-5.4); WHITE BLOOD COUNT 10.29 K/uL (4.8-10.8)
[2017-02-04] MEDS ORDERED: RXC5 PO (07:45)
[2017-02-04] MEDS ORDERED: ACET-24 PO (07:45)
[2017-02-04] MEDS ORDERED: ASPEC325 PO (07:45)
--- NOTE | 2017-02-04 07:46 | Orthopedic Progress Note ---
Orthopedic Progress Note Date of Service Feb 04, 2017. Subjective Post OP Day: 2 Reports: feeling well, Denies: complaints Additional Notes: Pt awake, alert, pleasantly confused. Objective calves soft nontender, N/V intact, splint C/D/I, toes mobile Toes ecchymotic on operative side. Moving toes well. Date Time Temp Pulse Resp B/P (MAP) Pulse Ox O2 Delivery O2 Flow Rate FiO2 02/03/17 23:56 37.2 73 18 136/70 (92) 93 Room Air 02/03/17 22:30 Room Air 02/03/17 16:10 Room Air 02/03/17 15:46 36.8 75 17 126/64 (84) 92 Room Air 02/03/17 12:26 37.0 71 18 143/72 (95) 91 02/03/17 10:19 75 94 02/03/17 08:00 97 Nasal Cannula 2.0 Laboratory Results 24 Hours: Test 02/04/17 06:59 Hematocrit 33.8 % Hemoglobin 10.5 g/dL Assessment & Plan Assessment: POD #2 Left ORIF bimalleolar fracture and syndesmosis disruption. Plan: Medical management - appreciate medicine input. PT/OT - NWB KETTYE DVT - ASA Discharge - [facility] Inhouse Planning Pain Management: Morphine, PO Tylenol, Oxy IR DVT Prophylaxis: ASA Discharge Planning Discharge Planning: custodial facility Pain Management: Oxy IR
--- NOTE | 2017-02-04 07:51 | Discharge Instructions ---
Discharge Instructions Date of Service Feb 04, 2017. Admission Reason for Admission: Left Ankle Fracture Discharge Discharge Diagnosis / Problem: Left Ankle Fracture Discharge Goals Goal(s): Decrease discomfort, Improve function, Increase independence Activity Recommendations Activity Level: Assistance Required Therapies: Physical Therapy (gait training NWB LLE), Occupational Therapy (ADL' s) Weightbearing Status: Left non-weightbearing . Additional Information Patient informed of condition: Yes Advance Directives: Yes DNR: No Level of Care: Skilled Communicable Disease: No Prognosis: Stable Askew Catheter: No Instructions / Follow-Up Instructions / Follow-Up ACTIVITY RECOMMENDATIONS: * You are NONWEIGHTBEARING on your left foot SPECIAL CARE INSTRUCTIONS: * Some drainage onto the dressing is normal and is no cause for alarm. * Some swelling is natural especially after walking. When resting, keep your foot elevated above the level of your heart. * Call the doctor's office at if you notice increased drainage, fever over 101 degrees F. or severe constant pain. BANDAGE: * Leave bandage/cast in place unless otherwise directed. * Keep bandage/cast dry at all times. FOLLOW UP VISIT: If appointment is not already scheduled: Please call [facility] to make a follow-up appointment 2 weeks after your surgery at . Current Hospital Diet Patient's current hospital diet: Diabetes Type 2 Diet Discharge Diet Recommended Diet: Diabetes Type 2 Diet Procedures Procedures Performed: Open reduction internal fixation left bimalleolar ankle fracture, open reduction internal fixation syndesmosis disruption Pending Studies Studies pending at discharge: no Physician Orders On Transfer Vital Signs: routine Medical Emergencies . Who to Call and When: Medical Emergencies: If at any time you feel your situation is an emergency, please call 911 immediately. . Non-Emergent Contact Non-Emergency issues call your: Surgeon Call Non-Emergent contact if: temperature is above 101.5, your pain is not controlled, your pain is worsening, wound has increased drainage, wound has increased redness . . "Provider Documentation" section prepared by Chapincito Garcia. . Core Measure Problem Core Measures: None [place] Drug Monitoring Program Search Results: patient reviewed within database, no issues identified
[2017-02-04 07:58] VITALS: O2SAT 93
[2017-02-04] MEDS: INSULIN ASPART 100 UNITS/ML 3 ML PEN SC SCH ×4 (08:00→21:00)
[2017-02-04 08:17] VITALS: BP 128/68; PULSE 74; TEMP 36.5; O2SAT 93
[2017-02-04] MEDS: FERROUS GLUCONATE 324 MG TAB PO SCH ×3 (08:25→17:54)
[2017-02-04 08:35] VITALS: O2SAT 93
[2017-02-04] MEDS: POTASSIUM CHLORIDE 20 MEQ TABCR PO SCH (09:00)
[2017-02-04] MEDS: PANTOprazole SOD 40 MG TAB PO SCH ×2 (09:00→09:07)
[2017-02-04] MEDS: CEROVITE ADV FORMULA TAB PO SCH (09:00)
[2017-02-04] MEDS: METHYLCELLULOSE POWDER 454 GM JAR PO SCH (09:07)
[2017-02-04] MEDS: METOPROLOL SUCC 50MG EXT REL TAB PO SCH (09:08)
[2017-02-04] MEDS: BuPROPion SR 100 MG TABCR PO SCH ×2 (09:08→21:10)
[2017-02-04] MEDS: ASPIRIN 325 MG ECTAB PO SCH ×2 (09:09→21:10)
[2017-02-04] MEDS: ESCITALOPRAM OXALATE 20 MG TAB PO SCH (09:09)
[2017-02-04 15:08] VITALS: BP 115/74; PULSE 74; TEMP 36.5; O2SAT 97
[2017-02-04] MEDS: LORAZEPAM 1 MG TAB PO SCH (21:09)
[2017-02-04 23:29] VITALS: BP 120/78; PULSE 73; TEMP 36.7; O2SAT 96
[2017-02-05] MEDS: ACETAMINOPHEN 500 MG TAB PO SCH ×2 (05:38→13:47)
[2017-02-05 06:29] LABS: HEMATOCRIT 33.7 % (37-47); MEAN CELL VOLUME 95.5 fL (80-100); MEAN CORPUSCULAR HEMOGLOBIN 30.3 pg (25-34); MEAN CORPUSCULAR HGB CONC 31.8 g/dl (32-36); MEAN PLATELET VOLUME 10.1 fL (7.4-10.4); PLATELET COUNT 228 K/uL (130-400); RED BLOOD COUNT 3.53 M/uL (4.2-5.4)
[2017-02-05 07:20] VITALS: O2SAT 96
[2017-02-05 07:35] VITALS: BP 169/88; PULSE 82; TEMP 36.5; O2SAT 96
[2017-02-05] MEDS: PANTOprazole SOD 40 MG TAB PO SCH ×2 (09:00→09:23)
[2017-02-05] MEDS: INSULIN ASPART 100 UNITS/ML 3 ML PEN SC SCH ×2 (09:19→13:15)
[2017-02-05] MEDS: FERROUS GLUCONATE 324 MG TAB PO SCH ×2 (09:21→13:17)
[2017-02-05] MEDS: METHYLCELLULOSE POWDER 454 GM JAR PO SCH (09:23)
[2017-02-05] MEDS: METOPROLOL SUCC 50MG EXT REL TAB PO SCH (09:24)
[2017-02-05] MEDS: POTASSIUM CHLORIDE 20 MEQ TABCR PO SCH (09:24)
[2017-02-05] MEDS: BuPROPion SR 100 MG TABCR PO SCH (09:25)
[2017-02-05] MEDS: ASPIRIN 325 MG ECTAB PO SCH (09:25)
[2017-02-05] MEDS: ESCITALOPRAM OXALATE 20 MG TAB PO SCH (09:25)
--- NOTE | 2017-02-05 09:30 | Orthopedic Progress Note ---
Orthopedic Progress Note Date of Service Feb 05, 2017. Subjective Post OP Day: 3 Reports: feeling well, Denies: complaints Additional Notes: Awake, alert, pleasantly confused. Eating breakfast with the help of the staff. Objective calves soft nontender, N/V intact, splint C/D/I, toes mobile No new changes Date Time Temp Pulse Resp B/P (MAP) Pulse Ox O2 Delivery O2 Flow Rate FiO2 02/05/17 07:35 36.5 82 16 169/88 (115) 96 Room Air 02/04/17 23:35 Room Air 02/04/17 23:29 36.7 73 18 120/78 (92) 96 Room Air 02/04/17 15:08 36.5 74 16 115/74 (88) 97 Room Air 02/04/17 14:30 Room Air Laboratory Results 24 Hours: Test 02/05/17 06:05 Hematocrit 33.7 % Hemoglobin 10.7 g/dL Assessment & Plan Assessment: POD #3 Left ORIF bimalleolar fracture and syndesmosis disruption. Plan: Medical management - appreciate medicine input. PT/OT - NWB KETTYE DVT - ASA Discharge - [facility] Inhouse Planning Pain Management: Morphine, PO Tylenol, Oxy IR DVT Prophylaxis: ASA Discharge Planning Discharge Planning: [facility] facility Pain Management: Oxy IR
[2017-02-05] MEDS: CEROVITE ADV FORMULA TAB PO SCH (09:33)
[2017-02-05 12:48] VITALS: BP 169/88; PULSE 82; TEMP 36.5; O2SAT 96
--- NOTE | 2017-02-09 12:43 | DISCHARGE SUMMARY ---
DISCHARGE DIAGNOSIS: Left bimalleolar ankle fracture with syndesmosis disruption. SECONDARY DIAGNOSES: Dementia, degenerative joint disease, gastroesophageal reflux disease, hypertension, hypothyroidism, and polymyalgia rheumatica. CONSULTS: Gale Ridley PA-C/Ruben Gutierrez M.D. COMPLICATIONS: None. PROCEDURES: ORIF of left bimalleolar ankle fracture, open reduction internal fixation, syndesmosis disruption by Dr. Cueva on 02/02/2017. BRIEF HISTORY: As dictated in history and physical. HOSPITAL SUMMARY: The patient was admitted on the above date and had the above-noted surgery performed which she tolerated well. On the first postoperative day, the patient was feeling well and pain was controlled. She had no complaints. Calves were soft, nontender, neurovascularly intact. Dressings clean, dry and intact. Toes were mobile. Vital signs were stable. She is afebrile and plans were for discharge back to residential facility when stable. By her 2nd postoperative day, she was feeling well. She is awake, alert and pleasantly confused. Calves were soft and nontender, neurovascularly intact. Splint was clean, dry and intact. Toes were mobile. She has some ecchymosis noted on the operative side and was moving the toes well. Vital signs were stable. She was afebrile. Hemoglobin was 10.5. The rest of the patient's stay was essentially uneventful and by 02/05/2017 she was feeling well. She had no new complaints. Splint was intact. Toes were mobile Neurovascularly was intact. There were no new changes and she was remaining stable and it was felt she could be transferred back to a residential facility on 02/05/2017. For further review, please see chart. LABORATORY AND X-RAY DATA: As per chart. DISCHARGE INSTRUCTIONS: The patient was discharged to [facility] on 02/05/2017. DIET: Diabetic. ACTIVITY: Nonweightbearing, left lower extremity. The patient to have PT and OT, gait training, ADLs and transfers. The patient again noted to be nonweightbearing on the left foot. FOLLOWUP: Follow special care instructions as noted and follow up with Dr. Hawley in 2 weeks. The patient to call for appointment if one has not been made for you. DISCHARGE MEDICATIONS: Acetaminophen 1000 mg p.o. q. 8 hours for 14 days, aspirin 325 mg p.o. b.i.d. for 30 days, oxycodone 5-10 mg p.o. q. 4 hours p.r.n.; resume home meds as listed in discharge instructions section.
== END 2017-02-05 13:55 | DRG 494 ==
LOC: C.MSN 17:15
PROVIDERS: ADMIT Orthopaedic Surgery; ATTEND Orthopaedic Surgery
PROC: 0QSK04Z Reposition Left Fibula with Internal Fixation Device, Open Approach (ICD-10-PCS; principal; 2017-02-02 09:30)
DX: S82.842A Displaced bimalleolar fracture of left lower leg, initial encounter for closed fracture (principal); E11.40 Type 2 diabetes mellitus with diabetic neuropathy, unspecified; K21.9 Gastro-esophageal reflux disease without esophagitis; I12.9 Hypertensive chronic kidney disease with stage 1 through stage 4 chronic kidney disease, or unspecified chronic kidney disease; N18.3 Chronic kidney disease, stage 3 (moderate); F03.90 Unspecified dementia, unspecified severity, without behavioral disturbance, psychotic disturbance, mood disturbance, and anxiety; F41.9 Anxiety disorder, unspecified; F32.9 Major depressive disorder, single episode, unspecified; G47.33 Obstructive sleep apnea (adult) (pediatric); Z79.899 Other long term (current) drug therapy; Z79.84 Long term (current) use of oral hypoglycemic drugs; Z86.718 Personal history of other venous thrombosis and embolism; Z91.81 History of falling; Z87.440 Personal history of urinary (tract) infections; Z83.3 Family history of diabetes mellitus; W19.XXXA Unspecified fall, initial encounter